=== PATIENT | female | born 1975 | race Hispanic/Latino ===

== ENCOUNTER 2017-05-06 22:08 | Emergency (ER) | payer MEDICAID ==
[2017-05-06 22:48] VITALS: BMI 27.4
[2017-05-06] MEDS ORDERED: Sodium Chloride 0.9% 1,000 ML IV STA (22:50)
--- NOTE | 2017-05-06 22:53 | ED PDOC ---
Arrival/HPI - General Chief Complaint: Abdominal Pain Time Seen by Provider: 05/06/17 22:32 Historian: Patient - History of Present Illness Narrative History of Present Illness (Text): 05/06/17 22:50 Holly Orozco is a 41 year old female, with a history of lupus, hepatitis C , IVDA, alcohol abuse, and LE cellulitis, presents to the emergency department complaining of abdominal pain since yesterday. Patient states that she had an abscess removed from right psoas muscle in August of 2016. States that pain is similar in quality to that episode. Patient informs that she gets nauseous immediately after eating a meal. Denies any fever, chills, headache, dizziness, chest pain, shortness of breathing, vomiting, diarrhea, urinary symptoms, or any other complaints at this time. Time/Duration: Other (yesterday ) Symptom Onset: Gradual Symptom Course: Unchanged Severity Level: Mild Activities at Onset: Light Past Medical History - Provider Review Nursing Documentation Reviewed: Yes - Infectious Disease Hx of Infectious Diseases: None - Tetanus Immunization Tetanus Immunization: Up to Date, Unknown - Cardiac Hx Cardiac Disorders: No Hx Hypertension: No - Pulmonary Hx Asthma: Yes - Neurological HX Cerebrovascular Accident: No Hx Seizures: No - HEENT Hx HEENT Disorder: No - Renal Hx Renal Disorder: No - Endocrine/Metabolic Hx Systemic Lupus Erythematosus: Yes Other/Comment: Methotrexate taken for Lupus - Hematological/Oncological Hx Cancer: No - Integumentary Other/Comment: Past cellulitis to the lower extremities - Musculoskeletal/Rheumatological Hx Arthritis: Yes - Gastrointestinal Hx Gastrointestinal Disorders: No - Genitourinary/Gynecological Hx Sexually Transmitted Diseases: No - Psychiatric Hx Anxiety: Yes Hx Depression: Yes Hx Substance Use: Yes - Past Surgical History Past Surgical History: No Previous - Surgical History Other/Comment: cyst drainage - Anesthesia Hx Anesthesia: Yes Hx Anesthesia Reactions: No Hx Malignant Hyperthermia: No - Suicidal Assessment Feels Threatened In Home Enviroment: No Family/Social History - Physician Review Nursing Documentation Reviewed: Yes Family/Social History: No Known Family HX Smoking Status: Light Smoker < 10 Cigarettes Daily Hx Alcohol Use: No Hx Substance Use: Yes Substance used: heroin and cocaine Hx Substance Use Treatment: No Allergies/Home Meds Allergies/Adverse Reactions: Allergies No Known Allergies Allergy (Verified 05/06/17 22:48) Review of Systems - Physician Review All systems were reviewed & negative as marked: Yes - Review of Systems Constitutional: Normal. absent: Fatigue, Fevers Respiratory: Normal. absent: SOB, Cough, Sputum Cardiovascular: Normal. absent: Chest Pain, Palpitations Gastrointestinal: Abdominal Pain, Nausea. absent: Diarrhea, Vomiting Genitourinary Female: Normal Musculoskeletal: Normal Neurological: Normal. absent: Headache, Dizziness Psychiatric: Normal Physical Exam Vital Signs Reviewed: Yes Vital Signs Temp Pulse Resp BP Pulse Ox 05/07/17 01:11 98.0 F 80 16 110/80 99 05/06/17 22:21 98.2 F 78 18 106/72 100 Temperature: Afebrile Blood Pressure: Normal Pulse: Regular Respiratory Rate: Normal Appearance: Positive for: Well-Appearing, Non-Toxic, Comfortable Pain Distress: None Mental Status: Positive for: Alert and Oriented X 3 - Systems Exam Head: Present: Atraumatic, Normocephalic Pupils: Present: PERRL Conjunctiva: Present: Normal Mouth: Present: Moist Mucous Membranes Respiratory/Chest: Present: Clear to Auscultation, Good Air Exchange. No: Respiratory Distress, Accessory Muscle Use Cardiovascular: Present: Regular Rate and Rhythm, Normal S1, S2. No: Murmurs Abdomen: Present: Normal Bowel Sounds. No: Tenderness, Distention, Peritoneal Signs Upper Extremity: Present: Normal Inspection. No: Cyanosis, Edema Lower Extremity: Present: Normal Inspection. No: Edema Neurological: Present: GCS=15, CN II-XII Intact, Speech Normal, Motor Func Grossly Intact, Normal Sensory Function Skin: Present: Warm, Dry, Normal Color. No: Rashes Psychiatric: Present: Alert, Oriented x 3, Normal Insight, Normal Concentration Medical Decision Making ED Course and Treatment: 05/06/17 22:57 Impression: A 41 year old female who presents to the emergency department complaining of abdominal pain associated with nausea since yesterday. Plan: -- Labs, lipase -- IV fluids -- Toradol -- HCG -- Urinalysis -- Reassess and disposition Progress Notes: 05/07/17 03:00 CT abdomen pelvis reviewed: FINDINGS: Lower thorax: Air in the esophagus in keeping with reflux. Small hiatus hernia. ABDOMEN: Liver: Liver prominent, 20.6 cm. Gallbladder and bile ducts: Common bile duct 10 mm, prominent, laboratory correlation. No calcified stones. Pancreas: Unremarkable. No ductal dilation. Spleen: Unremarkable. No splenomegaly. Adrenals: Unremarkable. No mass. Kidneys and ureters: Too small to characterize hypoattenuating finding in the right kidney series 2 image 61 may represent a cyst, subcentimeter. There is no hydronephrosis of either kidney. No ureteral stones are seen noting that punctate stones or noncalcified stones may not be well seen on CT. Stomach and bowel: No findings of bowel obstruction. No mucosal thickening. Appendix: The appendix is normal. PELVIS: Bladder: Unremarkable. No stones. Reproductive: 2.2 cm right adnexal cystic finding, please correlate with menstrual status. ABDOMEN and PELVIS: Intraperitoneal space: Unremarkable. No free air. No significant fluid collection. Bones/joints: Degenerative spine changes. No acute fracture. No dislocation. Soft tissues: Unremarkable. Vasculature: Unremarkable. No abdominal aortic aneurysm. Lymph nodes: Unremarkable. No enlarged lymph nodes. IMPRESSION: No ureteral stone seen, although difficult to absolutely exclude, laboratory correlation for hematuria or evidence of infection. Normal appendix. Hepatomegaly, prominent common bile duct, please correlate for biliary causes of symptoms. 2.2 cm right adnexal cyst which is favored to be functional, please correlate with menstrual status. As is true for all female patients of reproductive age, correlation with beta hCG and consideration of gynecologic causes of symptoms is recommended. The absence of intravenous contrast greatly limits evaluation of the parenchymal organs. 05/07/17 04:41 US Abdomen Limited, Right Upper Quadrant FINDINGS: Liver: Liver measures 18.2 cm. No intrahepatic bile duct dilation. Gallbladder: The gallbladder has no stones or sludge. Gallbladder wall thickness is within normal limits. As per the mri special procedures technologist there was no sonographic Vera's. Common bile duct: Common bile duct is 8 mm which is prominent for age. Clinical correlation. No choledocholithiasis. Pancreas: Limited visualization of the pancreas related to bowel gas. Right kidney: Right kidney measures 10.1 x 4.0 x 4.5 cm , no hydronephrosis solid mass or stone. IMPRESSION: 8mm common bile duct which is prominent for age, with no choledocholithiasis appreciated, laboratory correlation. No suspicious findings in the gallbladder. Negative right kidney. Pancreas could not be visualized. On reevaluation the patient feels better and is in no acute distress. I have discussed the results and plan with the patient, who expresses understanding. Patient given the opportunity to ask question, all questions were answered and there is agreement with the plan to discharge the patient home. Patient is stable for discharge. Patient was instructed to follow up with physician/clinic in 1-2 days or return if symptoms persist/worsen or new concerning symptoms arise. Re-evaluation Time: 04:08 Reassessment Condition: Re-examined, Improved - Lab Interpretations Lab Results: 05/06/17 23:17 05/06/17 23:17 Lab Results 05/06/17 23:17: Sodium 138, Potassium 4.5, Chloride 102, Carbon Dioxide 29, Anion Gap 12, BUN 14, Creatinine 0.7, Est GFR ( Amer) > 60, Est GFR (Non- Af Amer) > 60, Random Glucose 91, Calcium 9.3, Total Bilirubin 0.3, AST 20, ALT 28, Alkaline Phosphatase 70, Total Protein 7.6, Albumin 4.3, Globulin 3.4, Albumin/Globulin Ratio 1.3, Lipase 54 05/06/17 23:17: Urine Color Yellow, Urine Appearance Sl cloudy, Urine pH 7.5, Ur Specific [place] 1.015, Urine Protein Negative, Urine Glucose (UA) Negative, Urine Ketones Negative, Urine Blood Small H, Urine Nitrate Negative, Urine Bilirubin Negative, Urine Urobilinogen 1.0 H, Ur Leukocyte Esterase Negative, Urine RBC 1 - 3, Urine WBC 1 - 3, Ur Epithelial Cells 3 - 4, Urine Bacteria Small, Urine HCG, Qual Negative 05/06/17 23:17: PT 10.7, INR 0.99, APTT 29.2 05/06/17 23:17: WBC 8.1 D, RBC 4.55, Hgb 13.4, Hct 40.2, MCV 88.4, MCH 29.5, MCHC 33.3, RDW 13.6, Plt Count 234, MPV 9.9, Gran % 51.6, Lymph % (Auto) 38.1 H , [place] % (Auto) 4.4, Eos % (Auto) 5.7 H, Baso % (Auto) 0.2, Gran # 4.18, Lymph # 3.1, [place] # 0.4, Eos # 0.5, Baso # 0.02 I have reviewed the lab results: Yes - RAD Interpretation Radiology Orders: 05/07/17 00:24 ABD & PELVIS W/O PO OR IV CONT [CT] Stat 05/07/17 03:01 GALL BLADDER [US] Stat [employer] Internship: Radiologist - Medication Orders Current Medication Orders: Discontinued Medications Sodium Chloride (Sodium Chloride 0.9%) 1,000 mls @ 100 mls/hr IV .Q10H STA Stop: 05/07/17 08:49 Last Admin: 05/06/17 23:50 Dose: 100 mls/hr Ketorolac Tromethamine (Toradol) 30 mg IVP STAT STA Stop: 05/06/17 22:51 Last Admin: 05/06/17 23:50 Dose: 30 mg - Scribe Statement The provider has reviewed the documentation as recorded by the Alexibe Donna Vásquez Provider Attestation: Provider Scribe Attestation: All medical record entries made by the Scribe were at my direction and personally dictated by me. I have reviewed the chart and agree that the record accurately reflects my personal performance of the history, physical exam, medical decision making, and the department course for this patient. I have also personally directed, reviewed, and agree with the discharge instructions and disposition. Disposition/Present on Arrival - Present on Arrival Any Indicators Present on Arrival: No History of DVT/PE: No History of Uncontrolled Diabetes: No Urinary Catheter: No History of Decub. Ulcer: No History Surgical Site Infection Following: None - Disposition Have Diagnosis and Disposition been Completed?: Yes Diagnosis: Flank pain Disposition: HOME/ ROUTINE Disposition Time: 04:08 Condition: GOOD Discharge Instructions (ExitCare): Flank Pain (ED) Prescriptions: Sucralfate [Carafate Oral Susp] 1 gm PO QID #150 ml Referrals: Alyssa Wynn MD [Primary Care Provider] - Follow up with primary
[2017-05-07 00:55] LABS: ADD MANUAL DIFF? NO
[2017-05-07 01:00] LABS: BASO # 0.02 K/mm3 (0.0-2.0); BASO % 0.2 % (0.0-3.0); EOS # 0.5 (0.0-0.7); EOS % 5.7 % (1.5-5.0); GRAN # 4.18 (1.4-6.5); GRAN % 51.6 % (50.0-68.0); HEMATOCRIT 40.2 % (36.0-48.0); LYMPH # 3.1 (1.2-3.4); LYMPH % 38.1 % (22.0-35.0); MEAN CELL VOLUME 88.4 fL (80.0-105.0); MEAN CORPUSCULAR HEMOGLOBIN 29.5 pg (25.0-35.0); MEAN CORPUSCULAR HGB CONC 33.3 g/dl (31.0-37.0); MEAN PLATELET VOLUME 9.9 fl (7.0-11.0); MONO # 0.4 (0.1-0.6); MONO % 4.4 % (1.0-6.0); PLATELET COUNT 234 10^3/uL (120.0-450.0); RED CELL DISTRIBUTION WIDTH 13.6 % (11.5-14.5); WHITE BLOOD COUNT 8.1 10^3/ul (4.5-11.0)
[2017-05-07 01:04] LABS: PH,URINE 7.5 (4.7-8.0); URINE BILIRUBIN NEGATIVE (NEGATIVE); URINE BLOOD SMALL (NEGATIVE); URINE GLUCOSE (UA) NEGATIVE (NEGATIVE); URINE KETONE NEGATIVE (NEGATIVE); URINE LEUKOCYTE ESTERASE NEGATIVE Leu/uL (NEGATIVE); URINE PROTEIN NEGATIVE mg/dL (<30 mg/dL)
[2017-05-07 01:06] LABS: INR 0.99 (0.93-1.08); PARTIAL THROMBOPLASTIN TIME 29.2 Seconds (23.7-30.8)
[2017-05-07 01:11] LABS: URINE APPEARANCE SL CLOUDY (CLEAR); URINE COLOR YELLOW (YELLOW)
[2017-05-07 01:12] VITALS: BP 110/80; PULSE 80; RESP 16; TEMP 98; O2SAT 99
[2017-05-07 01:17] LABS: ALB/GLOB RATIO 1.3 (1.1-1.8); ALKALINE PHOSPHATASE 70 U/L (38-133); ALT/SGPT 28 U/L (7-56); AST/SGOT 20 U/L (15-39); BILIRUBIN,TOTAL 0.3 mg/dL (0.2-1.3); BLOOD UREA NITROGEN 14 mg/dL (7-21); CALCIUM 9.3 mg/dL (8.4-10.5); CARBON DIOXIDE 29 mmol/L (21-33); CHLORIDE 102 mmol/L (98-107); GFR AFRICAN-AMERICAN > 60; GLUCOSE,RANDOM 91 mg/dL (70-110); LIPASE 54 U/L (23-300); POTASSIUM 4.5 mmol/L (3.6-5.0); SODIUM 138 mmol/L (132-148); TOTAL PROTEIN 7.6 g/dL (5.8-8.3)
[2017-05-07 01:25] LABS: URINE BACTERIA SMALL (NEG)
--- NOTE | 2017-05-07 02:54 | CT ---
EXAM: CT Abdomen and Pelvis Without Intravenous Contrast CLINICAL HISTORY: 41 years old, female; Pain; Abdominal pain; Flank; Right; Additional info: Rt flank pain TECHNIQUE: Axial computed tomography images of the abdomen and pelvis without intravenous contrast. This CT exam was performed using one or more of the following dose reduction techniques: automated exposure control, adjustment of the mA and/or kV according to patient size, and/or use of iterative reconstruction technique. Coronal and sagittal reformatted images were created and reviewed. EXAM DATE/TIME: Exam ordered 05/07/2017 12:24 AM COMPARISON: CT - ABD PELVIS W/O PO OR IV CONT 01/13/2016 6:39:33 AM FINDINGS: Lower thorax: Air in the esophagus in keeping with reflux. Small hiatus hernia. ABDOMEN: Liver: Liver prominent, 20.6 cm. Gallbladder and bile ducts: Common bile duct 10 mm, prominent, laboratory correlation. No calcified stones. Pancreas: Unremarkable. No ductal dilation. Spleen: Unremarkable. No splenomegaly. Adrenals: Unremarkable. No mass. Kidneys and ureters: Too small to characterize hypoattenuating finding in the right kidney series 2 image 61 may represent a cyst, subcentimeter. There is no hydronephrosis of either kidney. No ureteral stones are seen noting that punctate stones or noncalcified stones may not be well seen on CT. Stomach and bowel: No findings of bowel obstruction. No mucosal thickening. Appendix: The appendix is normal. PELVIS: Bladder: Unremarkable. No stones. Reproductive: 2.2 cm right adnexal cystic finding, please correlate with menstrual status. ABDOMEN and PELVIS: Intraperitoneal space: Unremarkable. No free air. No significant fluid collection. Bones/joints: Degenerative spine changes. No acute fracture. No dislocation. Soft tissues: Unremarkable. Vasculature: Unremarkable. No abdominal aortic aneurysm. Lymph nodes: Unremarkable. No enlarged lymph nodes. IMPRESSION: No ureteral stone seen, although difficult to absolutely exclude, laboratory correlation for hematuria or evidence of infection. Normal appendix. Hepatomegaly, prominent common bile duct, please correlate for biliary causes of symptoms. 2.2 cm right adnexal cyst which is favored to be functional, please correlate with menstrual status. As is true for all female patients of reproductive age, correlation with beta hCG and consideration of gynecologic causes of symptoms is recommended. The absence of intravenous contrast greatly limits evaluation of the parenchymal organs.
--- NOTE | 2017-05-07 04:40 | US ---
EXAM: US Abdomen Limited, Right Upper Quadrant CLINICAL HISTORY: 41 years old, female; Pain; Abdominal pain; Generalized; Additional info: Ruq pain TECHNIQUE: Real-time ultrasound of the right upper quadrant with image documentation. EXAM DATE/TIME: Exam ordered 05/07/2017 3:01 AM COMPARISON: CT - ABD PELVIS W/O PO OR IV CONT 05/07/2017 1:53:24 AM FINDINGS: Liver: Liver measures 18.2 cm. No intrahepatic bile duct dilation. Gallbladder: The gallbladder has no stones or sludge. Gallbladder wall thickness is within normal limits. As per the electroencephalographic technologist there was no sonographic Vera's. Common bile duct: Common bile duct is 8 mm which is prominent for age. Clinical correlation. No choledocholithiasis. Pancreas: Limited visualization of the pancreas related to bowel gas. Right kidney: Right kidney measures 10.1 x 4.0 x 4.5 cm , no hydronephrosis solid mass or stone. IMPRESSION: 8mm common bile duct which is prominent for age, with no choledocholithiasis appreciated, laboratory correlation. No suspicious findings in the gallbladder. Negative right kidney. Pancreas could not be visualized.
== END 2017-05-07 04:17 | disposition home or self-care (01) ==
LOC: ED 22:08
DX: R10.9 Unspecified abdominal pain (principal); M32.9 Systemic lupus erythematosus, unspecified; B19.20 Unspecified viral hepatitis C without hepatic coma
CPT/HCPCS: 74176; 76705; 80053; 81001; 83690; 84703; 85025; 85610; 85730; 96374; 99283; J1885; J7040

== ENCOUNTER 2017-09-16 20:03 | Emergency (ER) | payer MEDICAID, OTHER ==
[2017-09-16 20:04] VITALS: BMI 27.4
[2017-09-16 20:14] VITALS: TEMP 98.2; O2SAT 100
--- NOTE | 2017-09-16 21:27 | ED PDOC ---
Arrival/HPI - General Chief Complaint: Allergic Reaction Time Seen by Provider: 09/16/17 20:14 Historian: Patient - History of Present Illness Narrative History of Present Illness (Text): 09/16/17 21:28 A 41 year old female, whose past medical history includes asthma and lupus, presents to the emergency department complaining of cough and congestion. Patient also reports left wrist and right foot pain after an injury at work. Patient also notes a toothache and mild perioral swelling. Patient denies any fever or any other complaints at this time. Symptom Onset: Sudden Symptom Course: Unchanged Activities at Onset: Rest Context: Home Past Medical History - Provider Review Nursing Documentation Reviewed: Yes - Infectious Disease Hx of Infectious Diseases: None - Tetanus Immunization Tetanus Immunization: Up to Date, Unknown - Reproductive Menopause: No - Cardiac Hx Cardiac Disorders: No Hx Hypertension: No - Pulmonary Hx Asthma: Yes - Neurological HX Cerebrovascular Accident: No Hx Seizures: No - HEENT Hx HEENT Disorder: No - Renal Hx Renal Disorder: No - Endocrine/Metabolic Hx Systemic Lupus Erythematosus: Yes Other/Comment: Methotrexate taken for Lupus - Hematological/Oncological Hx Cancer: No Hx Hepatitis C: Yes - Integumentary Other/Comment: Past cellulitis to the lower extremities - Musculoskeletal/Rheumatological Hx Arthritis: Yes - Gastrointestinal Hx Gastrointestinal Disorders: No - Genitourinary/Gynecological Hx Sexually Transmitted Diseases: No - Psychiatric Hx Anxiety: Yes Hx Depression: Yes Hx Substance Use: Yes - Past Surgical History Past Surgical History: No Previous - Surgical History Other/Comment: cyst drainage - Anesthesia Hx Anesthesia: Yes Hx Anesthesia Reactions: No Hx Malignant Hyperthermia: No - Suicidal Assessment Feels Threatened In Home Enviroment: No Family/Social History - Physician Review Nursing Documentation Reviewed: Yes Family/Social History: No Known Family HX Smoking Status: Light Smoker < 10 Cigarettes Daily Hx Alcohol Use: No Hx Substance Use: Yes Substance used: heroin and cocaine Hx Substance Use Treatment: No Allergies/Home Meds Allergies/Adverse Reactions: Allergies No Known Allergies Allergy (Verified 05/06/17 22:48) Review of Systems - Physician Review All systems were reviewed & negative as marked: Yes - Review of Systems Constitutional: absent: Fevers ENT: Sinus Congestion, Other (toothache and perioral swelling) Respiratory: Cough Musculoskeletal: Other (left wrist and right foot pain) Physical Exam Vital Signs Reviewed: Yes Vital Signs Temp Pulse Resp BP Pulse Ox 09/16/17 23:38 80 16 120/72 100 09/16/17 22:04 80 16 130/75 100 09/16/17 20:08 98.2 F 76 20 126/75 100 Temperature: Afebrile Blood Pressure: Normal Pulse: Regular Respiratory Rate: Normal Appearance: Positive for: Well-Appearing, Non-Toxic, Comfortable Pain Distress: None Mental Status: Positive for: Alert and Oriented X 3 - Systems Exam Head: Present: Atraumatic, Normocephalic Pupils: Present: PERRL Extroacular Muscles: Present: EOMI Conjunctiva: Present: Normal Mouth: Present: Moist Mucous Membranes Neck: Present: Normal Range of Motion Respiratory/Chest: Present: Rhonchi (scattered), Other (diminished breath sounds ). No: Accessory Muscle Use Cardiovascular: Present: Regular Rate and Rhythm, Normal S1, S2. No: Murmurs Abdomen: Present: Normal Bowel Sounds. No: Tenderness, Distention, Peritoneal Signs Back: Present: Normal Inspection Upper Extremity: Present: Tenderness (left wrist mild tenderness). No: Cyanosis , Edema Lower Extremity: Present: Tenderness (right foot mild tenderness). No: Edema Neurological: Present: GCS=15, CN II-XII Intact, Speech Normal Skin: Present: Warm, Dry, Normal Color. No: Rashes Psychiatric: Present: Alert, Oriented x 3, Normal Insight, Normal Concentration Medical Decision Making ED Course and Treatment: 09/16/17 21:25 Impression: A 41 year old female with cough, congestion and left wrist and right foot pain. Plan: -- chest xray -- labs -- Urinalysis -- Duoneb, Solumedrol -- Reassess and disposition Prior Visits: Notes and results from previous visits were reviewed. Patient last reported to the emergency department on 05/06/17 for evaluation of abdominal pain. Progress Notes: 09/16/17 22:00 No active disease, interpreted by me. 09/16/17 22:50 On reassessment, patient is eating potato chips. Lungs are clear. Offered patient further observation, which she declined. Patient is requesting to be discharged home. - Lab Interpretations Lab Results: 09/16/17 21:30 09/16/17 21:30 Lab Results 09/16/17 21:30: Influenza Typ A,B (EIA) Negative for flu a/b 09/16/17 21:30: Urine Color Yellow, Urine Appearance Sl cloudy, Urine pH 6.0, Ur Specific [place] >= 1.030, Urine Protein 30 H, Urine Glucose (UA) Negative, Urine Ketones Trace H, Urine Blood Moderate H, Urine Nitrate Negative, Urine Bilirubin Negative, Urine Urobilinogen 1.0 H, Ur Leukocyte Esterase Negative, Urine RBC 10 - 15, Urine WBC 1 - 3, Ur Epithelial Cells 6 - 8, Urine Bacteria Mod, Urine HCG, Qual Negative 09/16/17 21:30: Sodium 140, Potassium 3.9, Chloride 105, Carbon Dioxide 24, Anion Gap 15, BUN 16, Creatinine 0.6 L, Est GFR ( Amer) > 60, Est GFR ( Non-Af Amer) > 60, Random Glucose 96, Calcium 8.9, Total Bilirubin 0.6, AST 26, ALT 25, Alkaline Phosphatase 72, Total Protein 7.3, Albumin 4.3, Globulin 2.9, Albumin/Globulin Ratio 1.5 09/16/17 21:30: PT 11.0, INR 1.02, APTT 31.2 H 09/16/17 21:30: WBC 9.0, RBC 4.28, Hgb 12.5, Hct 37.2, MCV 86.9, MCH 29.2, MCHC 33.6, RDW 13.7, Plt Count 216, MPV 9.7, Gran % 73.7 H, Lymph % (Auto) 15.7 L, [place] % (Auto) 4.4, Eos % (Auto) 6.0 H, Baso % (Auto) 0.2, Gran # 6.63 H, Lymph # 1.4, [place] # 0.4, Eos # 0.5, Baso # 0.02 I have reviewed the lab results: Yes - RAD Interpretation Radiology Orders: 09/16/17 20:26 CHEST ONE VIEW [RAD] Stat 09/16/17 20:27 FOOT RIGHT 3 VIEWS ROUTINE [RAD] Stat WRIST, LEFT 3 VIEWS [RAD] Stat - Medication Orders Current Medication Orders: Discontinued Medications Albuterol/Ipratropium (Duoneb 3 Mg/0.5 Mg (3 Ml) Ud) 3 ml IH Q15M BINTA Stop: 09/16/17 21:01 Last Admin: 09/16/17 22:15 Dose: 3 ml Methylprednisolone (Solu-Medrol) 125 mg IVP STAT STA Stop: 09/16/17 20:27 Last Admin: 09/16/17 21:39 Dose: 125 mg IVP Administration Document 09/16/17 21:39 HI (Rec: 09/16/17 21:39 [place] [facility] [id number]) Charges for Administration # of IVP Administrations 1 - Scribe Statement The provider has reviewed the documentation as recorded by the Scribe Sruthi Rose All medical record entries made by the Scribe were at my direction and personally dictated by me. I have reviewed the chart and agree that the record accurately reflects my personal performance of the history, physical exam, medical decision making, and the department course for this patient. I have also personally directed, reviewed, and agree with the discharge instructions and disposition. Disposition/Present on Arrival - Present on Arrival Any Indicators Present on Arrival: No History of DVT/PE: No History of Uncontrolled Diabetes: No Urinary Catheter: No History of Decub. Ulcer: No History Surgical Site Infection Following: None - Disposition Have Diagnosis and Disposition been Completed?: Yes Diagnosis: Asthma, Toothache, Wrist injury, Foot injury Disposition: HOME/ ROUTINE Disposition Time: 11:30 Condition: STABLE Discharge Instructions (ExitCare): Asthma (ED), Foot Sprain (ED), Toothache (ED ), Wrist Sprain (ED) Additional Instructions: please see your doctor/clinic. return to er with worsening symptoms or concerns. Prescriptions: Albuterol 0.083% [Albuterol 0.083% Inhal Nohemi (2.5 mg/3 ml) UD] 2.5 mg IH Q6 PRN #20 neb PRN Reason: Wheezing Amoxicillin 500 mg PO TID #21 tablet Benzonatate [Tessalon Perles] 100 mg PO TID PRN #15 sgl PRN Reason: Cough Prednisone 50 mg PO DAILY #4 tablet Referrals: PCP,NO [Primary Care Provider] - Follow up with primary Forms: [employer] (Greek)
[2017-09-16] MEDS: Albuterol-Ipratrop 3 mg / 0.5 (3 ml) UD IH SCH ×3 (21:39→22:15)
[2017-09-16 21:45] LABS: BASO # 0.02 K/mm3 (0.0-2.0); BASO % 0.2 % (0.0-3.0); EOS # 0.5 (0.0-0.7); GRAN # 6.63 (1.4-6.5); GRAN % 73.7 % (50.0-68.0); HEMATOCRIT 37.2 % (36.0-48.0); LYMPH # 1.4 (1.2-3.4); LYMPH % 15.7 % (22.0-35.0); MEAN CELL VOLUME 86.9 fl (80.0-105.0); MEAN CORPUSCULAR HEMOGLOBIN 29.2 pg (25.0-35.0); MEAN CORPUSCULAR HGB CONC 33.6 g/dl (31.0-37.0); MEAN PLATELET VOLUME 9.7 fl (7.0-11.0); MONO # 0.4 (0.1-0.6); MONO % 4.4 % (1.0-6.0); RED CELL DISTRIBUTION WIDTH 13.7 % (11.5-14.5)
[2017-09-16 21:51] LABS: URINE BILIRUBIN NEGATIVE (NEGATIVE); URINE BLOOD MODERATE (NEGATIVE); URINE GLUCOSE (UA) NEGATIVE (NEGATIVE); URINE KETONE TRACE mg/dL (NEGATIVE); URINE LEUKOCYTE ESTERASE NEGATIVE Leu/uL (NEGATIVE); URINE PROTEIN 30 mg/dL (<30 mg/dL)
[2017-09-16 21:55] LABS: INR 1.02 (0.93-1.08); PARTIAL THROMBOPLASTIN TIME 31.2 Seconds (23.7-30.8)
[2017-09-16 21:57] LABS: ALB/GLOB RATIO 1.5 (1.1-1.8); ALKALINE PHOSPHATASE 72 U/L (38-126); ALT/SGPT 25 U/L (7-56); AST/SGOT 26 U/L (14-36); BILIRUBIN,TOTAL 0.6 mg/dL (0.2-1.3); BLOOD UREA NITROGEN 16 mg/dL (7-21); CALCIUM 8.9 mg/dL (8.4-10.5); CARBON DIOXIDE 24 mmol/L (21-33); CHLORIDE 105 mmol/L (98-107); GFR AFRICAN-AMERICAN > 60; GLUCOSE,RANDOM 96 mg/dL (70-110); POTASSIUM 3.9 mmol/L (3.6-5.0); SODIUM 140 mmol/L (132-148); TOTAL PROTEIN 7.3 g/dL (5.8-8.3)
[2017-09-16 22:05] LABS: URINE COLOR YELLOW (YELLOW)
[2017-09-16 22:06] LABS: URINE APPEARANCE SL CLOUDY (CLEAR)
[2017-09-16 22:26] LABS: URINE BACTERIA MOD (NEG)
[2017-09-16 23:38] VITALS: PULSE 80; RESP 16
[2017-09-16 23:40] VITALS: BP 120/72
--- NOTE | 2017-09-17 08:38 | RAD ---
PROCEDURE: CHEST RADIOGRAPH, 1 VIEW HISTORY: cough COMPARISON: 08/16/2016 FINDINGS: LUNGS: Clear. PLEURA: No pneumothorax or pleural fluid seen. CARDIOVASCULAR: Normal. OSSEOUS STRUCTURES: No significant abnormalities. VISUALIZED UPPER ABDOMEN: Normal. OTHER FINDINGS: None. IMPRESSION: No active disease.
--- NOTE | 2017-09-17 10:01 | RAD ---
PROCEDURE: Left Wrist Radiographs. HISTORY: trauma COMPARISON: None. FINDINGS: BONES: Subcortical cysts are tiny erosion are present: 3rd DIP joint. Lesser cystic subcortical changes - 5th metacarpal phalangeal, proximal interphalangeal, 2nd metacarpal phalangeal levels and 1st interphalangeal joint are noted. Radiocarpal joint space narrowing, carpal-metacarpal joint space narrowing. Distal interphalangeal joint osseous hypertrophy with mostly distal interphalangeal joint space narrowing-most pronounced 3rd DIP joint. No fracture. JOINTS: Osteoarthrosis as above. No dislocation SOFT TISSUES: Normal. OTHER FINDINGS: None. IMPRESSION: Multifocal arthrosis - carpal bone and distal interphalangeal joints most notably. No fracture or dislocation
--- NOTE | 2017-09-17 10:05 | RAD ---
PROCEDURE: Right Foot Radiographs. HISTORY: Trauma COMPARISON: None FINDINGS: BONES: No fracture JOINTS: Normal. SOFT TISSUES: Marked lateral soft tissue swelling- 5th metacarpal metacarpal phalangeal joint level. Lesser soft tissue swelling/hyperdensity -1st metacarpal phalangeal joint OTHER FINDINGS: Incidental os peroneum IMPRESSION: No fracture or dislocation. Marked soft tissue swellings
== END 2017-09-16 23:38 | disposition home or self-care (01) ==
LOC: ED 20:03
DX: K08.89 Other specified disorders of teeth and supporting structures (principal); J45.909 Unspecified asthma, uncomplicated; S69.92XA Unspecified injury of left wrist, hand and finger(s), initial encounter; S99.921A Unspecified injury of right foot, initial encounter; X58.XXXA Exposure to other specified factors, initial encounter; Y99.0 Civilian activity done for income or pay
CPT/HCPCS: 71010; 73110; 73630; 80053; 81001; 84703; 85025; 85610; 85730; 87804; 96374; 99284; J2930

== ENCOUNTER 2017-09-16 20:10 | Emergency (ER) | payer MEDICAID, OTHER ==
[2017-09-16 20:10] VITALS: BMI 27.4
== END 2017-09-16 23:07 | disposition left against medical advice (07) ==
LOC: ED 20:10
DX: Z02.89 Encounter for other administrative examinations (principal); R06.02 Shortness of breath

== ENCOUNTER 2017-09-16 20:14 | Emergency (ER) | payer MEDICAID, OTHER ==
[2017-09-16 20:14] VITALS: BMI 27.4
== END 2017-09-16 23:07 | disposition left against medical advice (07) ==
LOC: ED 20:14
DX: Z02.89 Encounter for other administrative examinations (principal); R06.02 Shortness of breath

== ENCOUNTER 2018-08-12 23:48 | Emergency (ER) | payer SELFPAY ==
[2018-08-12 23:49] VITALS: BMI 19.7
[2018-08-13 00:07] VITALS: BP 125/79; PULSE 107; RESP 18; TEMP 98.8; O2SAT 100
[2018-08-13] MEDS ORDERED: Vancomycin 1gm in NS 250ml 1 GM/250 ML BAG IVPB STA (00:08)
[2018-08-13] MEDS ORDERED: Piperacillin/Tazobact 3.375 gm 100 ML IVPB STA (00:08)
--- NOTE | 2018-08-13 00:08 | ED PDOC ---
Arrival/HPI - General Historian: Patient - History of Present Illness Time/Duration: < week Symptom Onset: Gradual Symptom Course: Unchanged Activities at Onset: Light Context: Home - General Chief Complaint: Upper Extremity Problem/Injury Time Seen by Provider: 08/12/18 23:53 - History of Present Illness Narrative History of Present Illness (Text): 08/13/18 00:07 Holly Thornton is a 42 year old female, whose past medical history includes IVDA and cellulitis, who presents to the emergency department with swelling, redness, and pain in the right hand. Patient was recently admitted to the hospital on 08/06/2018 for similar complaint and admitted to the hospital for IV antibiotics. Patient was discharged home on 08/06/2018 with prescriptions for Zyvox and Augmentin, which she did not fill due to insurance issues. Patient states since then, the swelling and redness in her right hand returned, and she developed purulent discharge today. Patient also complaining of pain to the area. Patient denies any injecting drugs in to the arm or hand recently. Patient denies any fever, chest pain, shortness of breath, abdominal pain, nausea, vomiting, diarrhea, or any other complaints. (Hari Tucker) Past Medical History - Provider Review Nursing Documentation Reviewed: Yes - Infectious Disease Hx of Infectious Diseases: None - Tetanus Immunization Tetanus Immunization: Up to Date, Unknown - Cardiac Hx Cardiac Disorders: No Hx Hypertension: No - Pulmonary Hx Asthma: Yes Hx Bronchitis: Yes Hx Pneumonia: Yes - Neurological Hx Migraine: Yes - HEENT Hx HEENT Disorder: No - Renal Hx Kidney Stones: Yes - Endocrine/Metabolic Hx Systemic Lupus Erythematosus: Yes Other/Comment: Methotrexate taken for Lupus - Hematological/Oncological Hx Anemia: Yes - Integumentary Other/Comment: Past cellulitis to the lower extremities - Musculoskeletal/Rheumatological Hx Arthritis: Yes Hx Fractures: Yes (Right pinky, left ankle) Hx Rheumatoid Arthritis: Yes - Gastrointestinal Hx Gastrointestinal Disorders: No - Genitourinary/Gynecological Hx Sexually Transmitted Diseases: No - Psychiatric Hx Anxiety: Yes Hx Bipolar Disorder: Yes Hx Depression: Yes Hx Substance Use: Yes (heroin/cocaine) - Past Surgical History Past Surgical History: No Previous - Surgical History Other/Comment: cyst drainage - Anesthesia Hx Anesthesia: Yes Hx Anesthesia Reactions: No Hx Malignant Hyperthermia: No - Suicidal Assessment Feels Threatened In Home Enviroment: No Family/Social History - Physician Review Nursing Documentation Reviewed: Yes Family/Social History: Unknown Family HX Smoking Status: Heavy Smoker > 10 Cigarettes Daily Hx Alcohol Use: Yes Hx Substance Use: Yes (heroin/cocaine) Substance used: heroin and cocaine Hx Substance Use Treatment: No Allergies/Home Meds Allergies/Adverse Reactions: Allergies No Known Allergies Allergy (Verified 08/13/18 00:02) Review of Systems - Physician Review All systems were reviewed & negative as marked: Yes - Review of Systems Constitutional: Normal. absent: Fevers Eyes: Normal ENT: Normal Respiratory: Normal. absent: SOB, Cough Cardiovascular: Normal. absent: Chest Pain Gastrointestinal: Normal. absent: Abdominal Pain, Diarrhea, Nausea, Vomiting Genitourinary Female: Normal. absent: Dysuria, Frequency, Hematuria, Urine Output Changes Musculoskeletal: Normal. absent: Back Pain, Neck Pain Skin: Other (+swelling/redness/pain to right hand) Neurological: Normal. absent: Dizziness Endocrine: Normal Hemo/Lymphatic: Normal Psychiatric: Normal Physical Exam Vital Signs Reviewed: Yes Temperature: Afebrile Blood Pressure: Normal Pulse: Regular Respiratory Rate: Normal Appearance: Positive for: Well-Appearing, Non-Toxic, Comfortable Pain Distress: None Mental Status: Positive for: Alert and Oriented X 3 - Systems Exam Head: Present: Atraumatic, Normocephalic Pupils: Present: PERRL Extroacular Muscles: Present: EOMI Conjunctiva: Present: Normal Mouth: Present: Moist Mucous Membranes Neck: Present: Normal Range of Motion Respiratory/Chest: Present: Clear to Auscultation, Good Air Exchange. No: Respiratory Distress, Accessory Muscle Use Cardiovascular: Present: Regular Rate and Rhythm, Normal S1, S2. No: Murmurs Abdomen: No: Tenderness, Distention, Peritoneal Signs Upper Extremity: Present: Edema (Right hand edema along the dorsal aspect of hand with limited ROM of fingers), NORMAL PULSES, Erythema (Quarter-sized area of erythema to dorsal aspect of right hand with purulent discharge coming out centrally), Neurovascularly Intact, Capillary Refill < 2s. No: Cyanosis, Normal ROM, Temperature Abnormalties, Deformity Lower Extremity: Present: Normal Inspection. No: Edema Neurological: Present: GCS=15, CN II-XII Intact, Speech Normal Skin: Present: Warm, Dry, Normal Color. No: Rashes Psychiatric: Present: Alert, Oriented x 3, Normal Insight, Normal Concentration Vital Signs Temp Pulse Resp BP Pulse Ox 08/13/18 00:02 98.8 F 107 H 18 125/79 100 Medical Decision Making ED Course and Treatment: 08/13/18 00:07 Impression: 42 year old female complaining of redness, swelling, and pain to right hand with purulent discharge today. Plan: -- Labs, blood cultures -- Wound cultures -- XR Right Hand -- Reassess and disposition Prior Visits: Notes and results from previous visits were reviewed. On 08/06/2018, pt was seen in the Emergency department for redness, swelling, and pain to right hand. Pt was admitted to the hospital for IV antibiotics and further evaluation. 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 The patient is choosing to leave against medical advice. I have personally explained to the patient that choosing to do so may result in permanent bodily harm or . I have discussed at great length that without further evaluation and monitoring there may be unforeseen circumstances and/or deterioration causing permanent bodily harm, loss of limb, or as a result of their choice. The patient is alert, oriented, and shows the mental capacity to make clear decisions regarding the patients health care at this time. The patient continues to wish to leave against medical advice. In light of the patients decision to leave against medical advice, s aware of the importance to following up as instructed. The patient has been advised that they should return to the emergency room immediately if they change their mind at any time, or if their condition begins to change or worsen in any way. (Hari Tucker) - RAD Interpretation Radiology Orders: 08/13/18 00:08 HAND RIGHT 3 VIEWS [RAD] Stat - Medication Orders Current Medication Orders: Vancomycin HCl (Vancomycin 1gm) 1 gm in 250 mls @ 167 mls/hr IVPB STAT STA PRN Reason: Protocol Stop: 08/13/18 01:37 Piperacillin Sod/Tazobactam Sod (Zosyn 3.375 In Ns 100ml) 100 mls @ 200 mls/hr IVPB STAT STA PRN Reason: Protocol Stop: 08/13/18 00:37 Sodium Chloride (Sodium Chloride 0.9%) 1,000 mls @ 999 mls/hr IV .Q1H1M STA Stop: 08/13/18 01:09 Discontinued Medications Ketorolac Tromethamine (Toradol) 30 mg IVP STAT STA Stop: 08/13/18 00:10 - Scribe Statement The provider has reviewed the documentation as recorded by the Scribe - Scribe Statement Ksenia Bautista Provider Scribe Attestation: All medical record entries made by the Scribe were at my direction and personally dictated by me. I have reviewed the chart and agree that the record accurately reflects my personal performance of the history, physical exam, medical decision making, and the department course for this patient. I have also personally directed, reviewed, and agree with the discharge instructions and disposition. (Hari Tucker) Disposition/Present on Arrival - Present on Arrival History of DVT/PE: No History of Uncontrolled Diabetes: No Urinary Catheter: No History of Decub. Ulcer: No History Surgical Site Infection Following: None - Disposition Diagnosis: Cellulitis of hand, Abscess, hand Disposition: AGAINST MEDICAL ADVICE Condition: UNKNOWN Discharge Instructions (ExitCare): Cellulitis (ED) Additional Instructions: return if you wish to continue your care Prescriptions: Cephalexin [Keflex] 500 mg PO QID #28 capsule Sulfamethoxazole/Trimethoprim [Bactrim DS 800 mg-160 mg] 1 tab PO BID #14 tab Referrals: David Patel MD [Staff Provider] - Follow up with primary Lili Ribera MD [Medical Doctor] - Follow up with primary [facility] [place] [Outside] - Follow up with primary [facility] [Outside] - Follow up with primary Forms: [employer] ([place])
[2018-08-13] MEDS ORDERED: Sodium Chloride 0.9% 1,000 ML IV STA (00:09)
--- NOTE | 2018-08-13 00:31 | ED PDOC ---
Arrival/HPI - General Chief Complaint: Upper Extremity Problem/Injury Time Seen by Provider: 08/12/18 23:53 Historian: Patient - History of Present Illness Narrative History of Present Illness (Text): 08/13/18 00:20 Holly Thornton is a 42 year old female, whose past medical history includes IVDA and cellulitis, who presents to the emergency department with swelling, redness, and pain in the right hand. Patient was recently admitted to the hospital on 08/06/2018 for similar complaint and admitted to the hospital for IV antibiotics. Patient was discharged home on 08/06/2018 with prescriptions for Zyvox and Augmentin, which she did not fill due to insurance issues. Patient states since then, the swelling and redness in her right hand returned, and she developed purulent discharge today. Patient also complaining of pain to the area. Patient denies any injecting drugs in to the arm or hand recently. Patient denies any fever, chest pain, shortness of breath, abdominal pain, nausea, vomiting, diarrhea, or any other complaints. Symptom Onset: Gradual Symptom Course: Unchanged Severity Level: Mild Activities at Onset: Light Context: Home Past Medical History - Provider Review Nursing Documentation Reviewed: Yes - Travel History Have you recently traveled outside [place] w/in the past 3 mons?: No - Infectious Disease Hx of Infectious Diseases: None - Tetanus Immunization Tetanus Immunization: Up to Date, Unknown - Cardiac Hx Cardiac Disorders: No Hx Hypertension: No - Pulmonary Hx Asthma: Yes Hx Bronchitis: Yes Hx Pneumonia: Yes - Neurological Hx Migraine: Yes - HEENT Hx HEENT Disorder: No - Renal Hx Kidney Stones: Yes - Endocrine/Metabolic Hx Systemic Lupus Erythematosus: Yes Other/Comment: Methotrexate taken for Lupus - Hematological/Oncological Hx Anemia: Yes - Integumentary Other/Comment: Past cellulitis to the lower extremities - Musculoskeletal/Rheumatological Hx Arthritis: Yes Hx Fractures: Yes (Right pinky, left ankle) Hx Rheumatoid Arthritis: Yes - Gastrointestinal Hx Gastrointestinal Disorders: No - Genitourinary/Gynecological Hx Sexually Transmitted Diseases: No - Psychiatric Hx Anxiety: Yes Hx Bipolar Disorder: Yes Hx Depression: Yes Hx Substance Use: Yes (heroin/cocaine) - Past Surgical History Past Surgical History: No Previous - Surgical History Other/Comment: cyst drainage - Anesthesia Hx Anesthesia: Yes Hx Anesthesia Reactions: No Hx Malignant Hyperthermia: No - Suicidal Assessment Feels Threatened In Home Enviroment: No Family/Social History - Physician Review Nursing Documentation Reviewed: Yes Family/Social History: Unknown Family HX Smoking Status: Heavy Smoker > 10 Cigarettes Daily Hx Alcohol Use: Yes Hx Substance Use: Yes (heroin/cocaine) Substance used: heroin and cocaine Hx Substance Use Treatment: No Allergies/Home Meds Allergies/Adverse Reactions: Allergies No Known Allergies Allergy (Verified 08/13/18 00:02) Review of Systems - Physician Review All systems were reviewed & negative as marked: Yes - Review of Systems Constitutional: Normal. absent: Fatigue, Fevers Respiratory: Normal. absent: SOB, Cough Cardiovascular: Normal. absent: Chest Pain Gastrointestinal: Normal. absent: Abdominal Pain, Diarrhea, Vomiting Musculoskeletal: Arthralgias (right hand pain/swelling). absent: Back Pain, Neck Pain Skin: Abscess, Cellulitis (+swelling/redness/pain to right hand) Neurological: Normal. absent: Headache, Dizziness Psychiatric: absent: Anxiety, Depression Physical Exam Vital Signs Reviewed: Yes Vital Signs Temp Pulse Resp BP Pulse Ox 08/13/18 00:02 98.8 F 107 H 18 125/79 100 Temperature: Afebrile Blood Pressure: Normal Pulse: Tachycardic Respiratory Rate: Normal Appearance: Positive for: Well-Appearing, Non-Toxic, Comfortable Pain Distress: None Mental Status: Positive for: Alert and Oriented X 3 - Systems Exam Head: Present: Atraumatic Conjunctiva: Present: Normal Mouth: Present: Moist Mucous Membranes Neck: Present: Normal Range of Motion Respiratory/Chest: Present: Clear to Auscultation, Good Air Exchange. No: Respiratory Distress, Accessory Muscle Use Cardiovascular: Present: Regular Rate and Rhythm, Normal S1, S2. No: Murmurs Upper Extremity: Present: Edema (Right hand edema along the dorsal aspect of hand with limited ROM of fingers), NORMAL PULSES, Erythema (QuaQuarter-sized area of erythema to dorsal aspect of right hand with purulent discharge coming out centrally), Neurovascularly Intact, Capillary Refill < 2s. No: Cyanosis, Normal ROM, Deformity Neurological: Present: GCS=15, Speech Normal Skin: Present: Warm, Dry, Normal Color Psychiatric: Present: Alert, Oriented x 3 Medical Decision Making ED Course and Treatment: 08/13/18 00:20 Impression: 42 year old female complaining of redness, swelling, and pain to right hand with purulent discharge today. Plan: -- Labs, blood cultures -- Wound cultures -- XR Right Hand -- Reassess and disposition Prior Visits: Notes and results from previous visits were reviewed. On 08/06/2018, pt was seen in the Emergency department for redness, swelling, and pain to right hand. Pt was admitted to the hospital for IV antibiotics and further evaluation. Progress Notes: 08/13/18 00:17 pt has refused any testing in er. she does not want to stay in the hospital without her belongings. 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 pt was made aware of the risk of loss of limb, bone infection, skin infection, sepsis, , disability and worsening of any symptoms. The patient is choosing to leave against medical advice. I have personally explained to the patient that choosing to do so may result in permanent bodily harm or . I have discussed at great length that without further evaluation and monitoring there may be unforeseen circumstances and/or deterioration causing permanent bodily harm, loss of limb, or as a result of their choice. The patient is alert, oriented, and shows the mental capacity to make clear decisions regarding the patients health care at this time. The patient continues to wish to leave against medical advice. In light of the patients decision to leave against medical advice, patient is aware of the importance to following up as instructed. The patient has been advised that they should return to the emergency room immediately if they change their mind at any time, or if their condition begins to change or worsen in any way. Patient has been advised to not leave the emergency room but has decided to go AGAINST MEDICAL ADVICE. The patient possesses capacity to make decisions and has voiced understanding to all my warnings of potential worsening of the condition for which medical care was sought. I have discussed all known and potential risks and consequences to the patient leaving AGAINST MEDICAL ADVICE. Patient is leaving against medical advise. AMA form signed. witness by JUHI west; cellulitis, abscess, hand AMA return if you wish to continue your care. . - RAD Interpretation Radiology Orders: 08/13/18 00:08 HAND RIGHT 3 VIEWS [RAD] Stat - Medication Orders Current Medication Orders: Vancomycin HCl (Vancomycin 1gm) 1 gm in 250 mls @ 167 mls/hr IVPB STAT STA PRN Reason: Protocol Stop: 09/13/18 01:37 Piperacillin Sod/Tazobactam Sod (Zosyn 3.375 In Ns 100ml) 100 mls @ 200 mls/hr IVPB STAT STA PRN Reason: Protocol Stop: 08/13/18 00:37 Sodium Chloride (Sodium Chloride 0.9%) 1,000 mls @ 999 mls/hr IV .Q1H1M STA Stop: 08/13/18 01:09 Discontinued Medications Ketorolac Tromethamine (Toradol) 30 mg IVP STAT STA Stop: 08/13/18 00:10 - Scribe Statement The provider has reviewed the documentation as recorded by the Alexibveronica Bautista Provider Scribe Attestation: All medical record entries made by the Scribe were at my direction and personally dictated by me. I have reviewed the chart and agree that the record accurately reflects my personal performance of the history, physical exam, medical decision making, and the department course for this patient. I have also personally directed, reviewed, and agree with the discharge instructions and disposition. Disposition/Present on Arrival - Present on Arrival Any Indicators Present on Arrival: No History of DVT/PE: No History of Uncontrolled Diabetes: No Urinary Catheter: No History of Decub. Ulcer: No History Surgical Site Infection Following: None - Disposition Have Diagnosis and Disposition been Completed?: Yes Diagnosis: Cellulitis of hand, Abscess, hand Disposition: AGAINST MEDICAL ADVICE Disposition Time: 12:20 Patient Plan: Other (AMA) Patient Problems: Current Active Problems Problem Status Onset Abscess, hand Acute Cellulitis of hand Acute Condition: UNKNOWN Discharge Instructions (ExitCare): Cellulitis (ED) Additional Instructions: return if you wish to continue your care Prescriptions: Cephalexin [Keflex] 500 mg PO QID #28 capsule Sulfamethoxazole/Trimethoprim [Bactrim DS 800 mg-160 mg] 1 tab PO BID #14 tab Referrals: [facility] [Outside] - Follow up with primary [facility] [place] [Outside] - Follow up with primary David Patel MD [Staff Provider] - Follow up with primary Lili Ribera MD [Medical Doctor] - Follow up with primary Forms: [employer] ([employer])
== END 2018-08-13 00:28 | disposition left against medical advice (07) ==
LOC: ED 23:48
DX: L03.113 Cellulitis of right upper limb (principal); L02.511 Cutaneous abscess of right hand; M06.9 Rheumatoid arthritis, unspecified; M32.9 Systemic lupus erythematosus, unspecified; F17.210 Nicotine dependence, cigarettes, uncomplicated

== ENCOUNTER 2018-08-13 01:14 | Inpatient (IN) | payer MEDICAID, OTHER ==
[2018-08-13 01:14] VITALS: BMI 19.7
--- NOTE | 2018-08-13 02:10 | ED PDOC ---
Arrival/HPI - General Chief Complaint: Upper Extremity Problem/Injury Time Seen by Provider: 08/13/18 02:01 Historian: Patient - History of Present Illness Narrative History of Present Illness (Text): 08/13/18 02:09 Holly Thornton is a 42 year old female, whose past medical history includes IVDA and cellulitis, who presents to the emergency department with swelling, redness, and pain in the right hand. Patient was recently admitted to the hospital on 08/06/2018 for similar complaint and admitted to the hospital for IV antibiotics. Patient was discharged home on 08/06/2018 with prescriptions for Zyvox and Augmentin, which she did not fill due to insurance issues. Patient states the swelling and redness in her right hand returned following discharge from the hospital, and she developed purulent discharge. Patient also complaining of pain to the area. Patient denies any injecting drugs in to the arm or hand recently. Patient denies any fever, chest pain, shortness of breath, abdominal pain, nausea, vomiting, diarrhea, or any other complaints. Patient was seen earlier tonight for similar complaints but left against medical advice because she had to go cloth picker some things from home. Symptom Onset: Gradual Symptom Course: Unchanged Activities at Onset: Light Context: Home Past Medical History - Infectious Disease Hx of Infectious Diseases: None - Tetanus Immunization Tetanus Immunization: Up to Date, Unknown - Cardiac Hx Cardiac Disorders: No Hx Hypertension: No - Pulmonary Hx Asthma: Yes Hx Bronchitis: Yes Hx Pneumonia: Yes - Neurological Hx Migraine: Yes - HEENT Hx HEENT Disorder: No - Renal Hx Kidney Stones: Yes - Endocrine/Metabolic Hx Systemic Lupus Erythematosus: Yes Other/Comment: Methotrexate taken for Lupus - Hematological/Oncological Hx Anemia: Yes - Integumentary Other/Comment: Past cellulitis to the lower extremities - Musculoskeletal/Rheumatological Hx Arthritis: Yes Hx Fractures: Yes (Right pinky, left ankle) Hx Rheumatoid Arthritis: Yes - Gastrointestinal Hx Gastrointestinal Disorders: No - Genitourinary/Gynecological Hx Sexually Transmitted Diseases: No - Psychiatric Hx Anxiety: Yes Hx Bipolar Disorder: Yes Hx Depression: Yes Hx Substance Use: Yes (heroine/cocaine) - Past Surgical History Past Surgical History: No Previous - Surgical History Other/Comment: cyst drainage - Anesthesia Hx Anesthesia: Yes Hx Anesthesia Reactions: No Hx Malignant Hyperthermia: No - Suicidal Assessment Feels Threatened In Home Enviroment: No Family/Social History - Physician Review Nursing Documentation Reviewed: Yes Family/Social History: No Known Family HX Smoking Status: Heavy Smoker > 10 Cigarettes Daily Hx Alcohol Use: Yes Hx Substance Use: Yes (heroine/cocaine) Substance used: heroin and cocaine Hx Substance Use Treatment: No Allergies/Home Meds Allergies/Adverse Reactions: Allergies No Known Allergies Allergy (Verified 08/13/18 00:02) Review of Systems - Physician Review All systems were reviewed & negative as marked: Yes - Review of Systems Constitutional: Normal. absent: Fevers Eyes: Normal ENT: Normal Respiratory: Normal. absent: SOB, Cough Cardiovascular: Normal. absent: Chest Pain Gastrointestinal: Normal. absent: Abdominal Pain, Diarrhea, Nausea, Vomiting Musculoskeletal: Normal. absent: Back Pain, Neck Pain Skin: Cellulitis (+pain/redness/swelling in right hand) Neurological: Normal. absent: Headache, Dizziness Endocrine: Normal Hemo/Lymphatic: Normal Psychiatric: Normal Physical Exam Vital Signs Reviewed: Yes Vital Signs Temp Pulse Resp BP Pulse Ox 08/13/18 01:20 98.7 F 104 H 18 125/81 100 Temperature: Afebrile Blood Pressure: Normal Pulse: Regular Respiratory Rate: Normal Appearance: Positive for: Well-Appearing, Non-Toxic, Comfortable Pain Distress: None Mental Status: Positive for: Alert and Oriented X 3 - Systems Exam Head: Present: Atraumatic, Normocephalic Pupils: Present: PERRL Extroacular Muscles: Present: EOMI Conjunctiva: Present: Normal Mouth: Present: Moist Mucous Membranes Neck: Present: Normal Range of Motion Respiratory/Chest: Present: Clear to Auscultation, Good Air Exchange. No: Respiratory Distress, Accessory Muscle Use Cardiovascular: Present: Regular Rate and Rhythm, Normal S1, S2. No: Murmurs Abdomen: No: Tenderness, Distention, Peritoneal Signs Upper Extremity: Present: Edema (Right hand edema along the dorsal aspect of hand), NORMAL PULSES, Erythema (Area of erythema to dorsal aspect of right hand with purulent discharge coming out centrally), Neurovascularly Intact, Capillary Refill < 2s. No: Cyanosis, Normal ROM (limited ROM of fingers of right hand), Deformity Lower Extremity: Present: Normal Inspection. No: Edema Neurological: Present: GCS=15, CN II-XII Intact, Speech Normal Skin: Present: Warm, Dry, Normal Color. No: Rashes Psychiatric: Present: Alert, Oriented x 3, Normal Insight, Normal Concentration Medical Decision Making ED Course and Treatment: 08/13/18 02:09 Impression: 42 year old female complaining of right hand swelling, pain, and redness. Differential Diagnosis included but are not limited to: cellulitis Plan: -- Labs, blood cultures -- Urinalysis -- Wound cultures -- Vancomycin -- Zosyn -- Reassess and disposition Prior Visits: Notes and results from previous visits were reviewed. Patient was seen earlier this evening for same complaint and left against medical advice. Progress Notes: Case discussed with medical research assistant food production machine operator, who is aware and agrees with plan. 08/13/18 02:[address] Mouna Knight, who is aware and agrees with plan. Accepts pt in to hospitalist service. [facility] for hand cellulitis. - Lab Interpretations Microbiology Results: Microbiology Results 08/13/18 02:20 Blood-Venous Blood Culture - Preliminary NO GROWTH AFTER 3 DAYS 08/13/18 01:50 Blood-Venous Blood Culture - Preliminary NO GROWTH AFTER 3 DAYS 08/13/18 01:45 Hand - Right Gram Stain - Final 08/13/18 01:45 Hand - Right Wound Culture - Final Methicillin Resistant S Aureus Lab Results: 08/13/18 01:50 08/13/18 01:50 Lab Results 08/13/18 01:50: Sodium 140, Potassium 3.9, Chloride 102, Carbon Dioxide 29, Anion Gap 13, BUN 19, Creatinine 0.5 L, Est GFR ( Amer) > 60, Est GFR ( Non-Af Amer) > 60, Random Glucose 133 H, Calcium 8.6, Total Bilirubin 0.2, AST 28, ALT 19, Alkaline Phosphatase 106, Total Protein 6.8, Albumin 3.4, Globulin 3.4, Albumin/Globulin Ratio 1.0 L 08/13/18 01:50: WBC 9.2 D, RBC 3.71, Hgb 9.9 L, Hct 31.3 L, MCV 84.4, MCH 26.7 , MCHC 31.6, RDW 16.6 H, Plt Count 344, MPV 8.6, Gran % 66.0, Lymph % (Auto) 25.4, Sanders % (Auto) 4.0, Eos % (Auto) 4.3, Baso % (Auto) 0.3, Gran # 6.09, Lymph # (Auto) 2.3, Sanders # (Auto) 0.4, Eos # (Auto) 0.4, Baso # (Auto) 0.03 - Medication Orders Current Medication Orders: Ferrous Sulfate (Feosol) 324 mg PO TID [facility] Last Admin: 08/16/18 17:38 Dose: 324 mg Heparin Sodium (Porcine) (Heparin) 5,000 units SC Q12 BINTA PRN Reason: Protocol Last Admin: 08/16/18 09:07 Dose: 5,000 units Subcutaneous Administrations Document 08/16/18 09:07 SUMMER (Rec: 08/16/18 09:07 [id number][place] Injection Site MAR Injection Site Left Abdomen Charges for Administration # of Subcutaneous Administrations 1 Piperacillin Sod/Tazobactam Sod (Zosyn 3.375 In Ns 100ml) 100 mls @ 200 mls/hr IVPB Q6 BINTA PRN Reason: Protocol Stop: 08/27/18 12:01 Last Admin: 08/16/18 17:37 Dose: 200 mls/hr eMAR Start Stop Document 08/16/18 17:37 SUMMER (Rec: 08/16/18 17:38 JA [id number]) Intravenous Solution Start Date 08/16/18 Start Time 17:37 Vancomycin HCl (Vancomycin 1gm) 1 gm in 250 mls @ 167 mls/hr IVPB Q12 BINTA PRN Reason: Protocol Last Admin: 08/16/18 22:18 Dose: 167 mls/hr eMAR Start Stop Document 08/16/18 22:18 THEODORE (Rec: 08/16/18 22:18 BR [id number]) Intravenous Solution Start Date 08/16/18 Start Time 22:18 End Date 08/16/18 End time 23:48 Total Infusion Time 90 Lactated Ringer's (Lactated Ringer's) 1,000 mls @ 80 mls/hr IV .[id number] [facility] Last Admin: 08/16/18 17:40 Dose: 80 mls/hr eMAR Start Stop Document 08/16/18 17:40 SUMMER (Rec: 08/16/18 17:40 [id number]) Intravenous Solution Start Date 08/16/18 Start Time 14:40 Ketorolac Tromethamine (Toradol) 15 mg IVP Q8H PRN PRN Reason: Pain, moderate (4-7) Last Admin: 08/16/18 20:29 Dose: 15 mg MAR Pain Assessment Document 08/16/18 20:29 BR (Rec: 08/16/18 20:29 [id number]) Pain Reassessment Is this a pain reassessment? No Sleep Is patient sleeping during reassessment? No Presence of Pain Presence of Pain Yes Location Left, Right or Bilateral Right Pain Location Body Site Hand IVP Administration Document 08/16/18 20:29 BR (Rec: 08/16/18 20:29 BR [id number]) Charges for Administration # of IVP Administrations 1 Pantoprazole Sodium (Protonix Ec Tab) 20 mg PO 0600,1600 BINTA Last Admin: 08/16/18 17:38 Dose: 20 mg Discontinued Medications Diphenhydramine HCl (Benadryl) 25 mg PO ONCE ONE Stop: 08/15/18 21:36 Vancomycin HCl (Vancomycin 1gm) 1 gm in 250 mls @ 167 mls/hr IVPB STAT STA PRN Reason: Protocol Stop: 08/13/18 03:46 Last Admin: 08/13/18 03:47 Dose: 167 mls/hr eMAR Start Stop Document 08/13/18 03:47 SS (Rec: 08/13/18 03:47 SS [id number]) Intravenous Solution Start Date 08/13/18 Start Time 03:47 End Date 08/13/18 End time 05:17 Total Infusion Time 90 Piperacillin Sod/Tazobactam Sod (Zosyn 3.375 In Ns 100ml) 100 mls @ 200 mls/hr IVPB STAT STA PRN Reason: Protocol Stop: 08/13/18 02:46 Last Admin: 08/13/18 02:44 Dose: 200 mls/hr eMAR Start Stop Document 08/13/18 02:44 SS (Rec: 08/13/18 02:44 SS [id number]) Intravenous Solution Start Date 08/13/18 Start Time 02:44 End Date 08/13/18 End time 03:14 Total Infusion Time 30 Vancomycin HCl (Vancomycin 1gm) 1 gm in 250 mls @ 167 mls/hr IVPB DAILY BINTA PRN Reason: Protocol Last Admin: 08/14/18 10:27 Dose: 167 mls/hr eMAR Start Stop Document 08/14/18 10:27 DMC (Rec: 08/14/18 10:29 D[id number]) Intravenous Solution Start Date 08/14/18 Start Time 10:28 End Date 08/14/18 End time 11:58 Total Infusion Time 90 Piperacillin Sod/Tazobactam Sod (Zosyn 2.25 Gm In 0.9% 100 Ml) 2.25 gm in 100 mls @ 100 mls/hr IVPB Q6H BINTA PRN Reason: Protocol Stop: 08/13/18 14:59 Last Admin: 08/13/18 09:42 Dose: 100 mls/hr eMAR Start Stop Document 08/13/18 09:42 SUMMER (Rec: 08/13/18 09:42 SUMMER [id number]) Intravenous Solution Start Date 08/13/18 Start Time 09:42 Lactated Ringer's (Lactated Ringer's) 1,000 mls @ 100 mls/hr IV .Q10H BINTA Last Admin: 08/16/18 02:30 Dose: 100 mls/hr eMAR Start Stop Document 08/16/18 02:30 LMN (Rec: 08/16/18 02:49 LMN [email or web address] Intravenous Solution Start Date 08/16/18 Start Time 02:30 Ketorolac Tromethamine (Toradol) 15 mg IVP ONCE ONE Stop: 08/13/18 02:52 Last Admin: 08/13/18 03:00 Dose: 15 mg MAR Pain Assessment Document 08/13/18 03:00 SS (Rec: 08/13/18 03:00 SS [id number]) Pain Reassessment Is this a pain reassessment? No IVP Administration Document 08/13/18 03:00 SS (Rec: 08/13/18 03:00 SS [id number]) Charges for Administration # of IVP Administrations 1 Ketorolac Tromethamine (Toradol) 15 mg IVP Q8H PRN PRN Reason: Pain, moderate (4-7) Stop: 08/16/18 07:01 Last Admin: 08/15/18 20:37 Dose: 15 mg MAR Pain Assessment Document 08/15/18 20:37 LMN (Rec: 08/15/18 20:38 LMN [id number][place] Pain Reassessment Is this a pain reassessment? No Presence of Pain Presence of Pain Yes Pain Scale Used Pain Scale Used Numeric IVP Administration Document 08/15/18 20:37 LMN (Rec: 08/15/18 20:38 LMN [id number][place] Charges for Administration # of IVP Administrations 1 Re-Assess: MAR Pain Assessment Document 08/15/18 21:37 LMN (Rec: 08/16/18 02:50 LMN [email or web address] Pain Reassessment Is this a pain reassessment? Yes Presence of Pain Presence of Pain Yes Pain Scale Used Pain Scale Used Numeric Description Pain not relieved and LIP/MD was No notified Lorazepam (Ativan) 0.5 mg PO ONCE ONE PRN Reason: Protocol Stop: 08/14/18 21:24 Last Admin: 08/14/18 21:37 Dose: 0.5 mg Behavioural Document 08/14/18 21:37 PCO (Rec: 08/14/18 21:37 PCO [id number]) Maintenance Maintenance Dose Yes Nonmedicinal Nonmedicinal Interventions Therapeutic Communication Behavior Behavior for Medication: Anxiety Re-Assess: Reassess Psych Meds Document 08/14/18 22:37 PCO (Rec: 08/15/18 00:02 PCO [id number]) Reassess Psych Med Effective Potassium Chloride (K-Dur 20 Meq Er Tab) 40 meq PO ONCE ONE Stop: 08/15/18 16:56 Last Admin: 08/15/18 16:28 Dose: 40 meq - Scribe Statement The provider has reviewed the documentation as recorded by the Francis Bautista Provider Scribe Attestation: All medical record entries made by the Scribveronica were at my direction and personally dictated by me. I have reviewed the chart and agree that the record accurately reflects my personal performance of the history, physical exam, medical decision making, and the department course for this patient. I have also personally directed, reviewed, and agree with the discharge instructions and disposition. Disposition/Present on Arrival - Present on Arrival Any Indicators Present on Arrival: No History of DVT/PE: No History of Uncontrolled Diabetes: No Urinary Catheter: No History of Decub. Ulcer: No History Surgical Site Infection Following: None - Disposition Have Diagnosis and Disposition been Completed?: Yes Diagnosis: Cellulitis of hand Disposition: HOSPITALIZED Disposition Time: 02:10 Patient Problems: Current Active Problems Problem Status Onset Cellulitis of hand Acute Condition: FAIR
[2018-08-13] MEDS ORDERED: Piperacillin/Tazobact 3.375 gm 100 ML IVPB STA (02:17)
[2018-08-13] MEDS ORDERED: Vancomycin 1gm in NS 250ml 1 GM/250 ML BAG IVPB STA (02:17)
[2018-08-13 02:34] LABS: BASO # 0.03 K/mm3 (0.0-2.0); BASO % 0.3 % (0.0-3.0); EOS # 0.4 (0.0-0.7); EOS % 4.3 % (1.5-5.0); GRAN # 6.09 (1.4-6.5); HEMOGLOBIN 9.9 g/dL (12.0-16.0); LYMPH # 2.3 (1.2-3.4); LYMPH % 25.4 % (22.0-35.0); MEAN CELL VOLUME 84.4 fl (80.0-105.0); MEAN CORPUSCULAR HEMOGLOBIN 26.7 pg (25.0-35.0); MEAN CORPUSCULAR HGB CONC 31.6 g/dl (31.0-37.0); MEAN PLATELET VOLUME 8.6 fl (7.0-11.0); MONO # 0.4 (0.1-0.6); RBC 3.71 10^6/uL (3.5-6.1); RED CELL DISTRIBUTION WIDTH 16.6 % (11.5-14.5); WHITE BLOOD COUNT 9.2 10^3/ul (4.5-11.0)
--- NOTE | 2018-08-13 03:02 | CP.PCM.HP ---
History of Present Illness - History of Present Illness History of Present Illness: Patricio Barber, PGY-1 H&P for Hospitalist Service This is a 42 year old female with PMH of SLE, RA, hepatitis C, cellulitis, depression and IVDA presenting to the ED for one day history of right hand and wrist swelling and pain. Patient was recently discharged on 08/08 for similar symptoms and was given prescription for oral zyvox and augmentin; however patient was unable to get the antibiotics due to lack of insurance. During previous admission, MRI of right hand showed cellulitis with no osteomyelitis. US did not show abscess. Patient states right hand swelling initially improved after discharged on 08/08 but worsened over the last day. At this time, she denies fevers, nausea, chills, headaches, vomiting, CP, SOB, numbness, tingling , muscle weakness, recent trauma, recent sickness and recent travel. Patient denies recent use of IV drugs and state last use was before her previous admission on 08/06. 12 point ROS noted here, otherwise unremarkable. In the ED, patient started on IV vanc and zosyn and given toradol for pain. Patient will be admitted to [facility]. PMH: as above SH: smokes 1ppd for 10 years, denies alcohol use, IVDA with heroin, cocaine Sx: denies surgeries FH: mom had rectal cancer and lupus Meds: trazodone and ativan prn All: NKDA Present on Admission - Present on Admission Any Indicators Present on Admission: No Past Patient History - Infectious Disease Hx of Infectious Diseases: None - Tetanus Immunizations Tetanus Immunization: Up to Date, Unknown - Past Medical History & Family History Past Medical History?: Yes - Past Social History Smoking Status: Heavy Smoker > 10 Cigarettes Daily - CARDIAC Hx Cardiac Disorders: No Hx Hypertension: No - PULMONARY Hx Asthma: Yes Hx Bronchitis: Yes Hx Pneumonia: Yes - NEUROLOGICAL Hx Migraine: Yes - HEENT Hx HEENT Problems: No - RENAL Hx Kidney Stones: Yes - ENDOCRINE/METABOLIC Hx Systemic Lupus Erythematosus: Yes Other/Comment: Methotrexate taken for Lupus - HEMATOLOGICAL/ONCOLOGICAL Hx Anemia: Yes - INTEGUMENTARY Other/Comment: Past cellulitis to the lower extremities - MUSCULOSKELETAL/RHEUMATOLOGICAL Hx Arthritis: Yes Hx Fractures: Yes (Right pinky, left ankle) Hx Rheumatoid Arthritis: Yes - GASTROINTESTINAL Hx Gastrointestinal Disorders: No - GENITOURINARY/GYNECOLOGICAL Hx Sexually Transmitted Disorders: No - PSYCHIATRIC Hx Anxiety: Yes Hx Bipolar Disorder: Yes Hx Depression: Yes Hx Substance Use: Yes (heroine/cocaine) - SURGICAL HISTORY Other/Comment: cyst drainage - ANESTHESIA Hx Anesthesia: Yes Hx Anesthesia Reactions: No Hx Malignant Hyperthermia: No Meds Allergies/Adverse Reactions: Allergies Allergy/AdvReac Type Severity Reaction Status Date / Time No Known Allergies Allergy Verified 08/13/18 00:02 Physical Exam - Constitutional Appears: No Acute Distress - Head Exam Head Exam: ATRAUMATIC, NORMAL INSPECTION - Eye Exam Eye Exam: EOMI Pupil Exam: PERRL - ENT Exam ENT Exam: Mucous Membranes Moist - Respiratory Exam Respiratory Exam: Clear to Auscultation Bilateral. absent: Respiratory Distress - Cardiovascular Exam Cardiovascular Exam: REGULAR RHYTHM, +S1, +S2 - GI/Abdominal Exam GI & Abdominal Exam: Normal Bowel Sounds. absent: Firm, Guarding - Extremities Exam Extremities exam: Positive for: pedal pulses present. Negative for: calf tenderness Additional comments: right hand swelling that extends from the wrist distally to the tips of the fingers. Moderate tenderness and redness appreciated. Gross sanguinous clear fluid draining from base of first finger. Decreased active range of motion of right hand. No loss of sensation. Pulses palpable +2 B/L in upper extremities - Back Exam Back exam: NORMAL INSPECTION - Neurological Exam Neurological exam: Alert, Oriented x3 - Skin Skin Exam: Normal Color, Warm Results - Vital Signs Recent Vital Signs: Last Vital Signs Temp 98.7 F 08/13/18 01:20 Pulse 104 H 08/13/18 01:20 Resp 18 08/13/18 01:20 BP 125/81 08/13/18 01:20 Pulse Ox 100 08/13/18 01:20 - Labs Result Diagrams: 08/13/18 01:50 08/13/18 01:50 Assessment & Plan - Assessment and Plan (Free Text) Assessment: This is a 42 year old female with PMH of SLE, RA, hepatitis C, cellulitis, depression and IVDA presenting to the hospital for management of one day history of right hand swelling and tenderness concerning for recurrent cellulitis from previous admission last week. Will admit to medsurg and resume IV antibiotics. Plan: Right hand swelling/redness/tenderness -likely 2/2 recurrent cellulitis of right hand -Right hand MRI on 08/07 showed probable cellulitis over the dorsum of the hand, no evidence of osteomyelitis -US of right hand on 08/06 showed no evidence for DVT -patient discharged on 08/08 with oral zyvox and augmentin but unable to fill due to insurance problem -blood, urine and wound culture pending -Given vanc and zosyn in ED. Will continue vanc and zosyn on the medical floor -ID on consult, Dr. Price -General surg on consult, Dr. Zimmerman Anemia -iron deficiency vs anemia of chronic disease -MCV WNL, elevated RDW -Iron studies pending -retic count pending -peripheral smear pending -TSH, T4 pending -history of lupus History of IVDA -HIV non reactive 08/06/18 -Echo 08/07 showed no evidence of endocarditis or vegetations History of Hep C -Hep C antibody reactive on 08/06/18 -not currently on treatment -LFT WNL History of lupus, RA -not currently on treatment -BUN/Cr WNL -cardiolipin panel pending -lupus panel pending -counseled on following up with PCP/supervisor offset plate preparation PPX with protonix and heparin Patient seen and case discussed with attending, Dr. Suleman Barber, PGY1
[2018-08-13 03:06] LABS: ALBUMIN 3.4 g/dL (3.0-4.8); ALT/SGPT 19 U/L (7-56); AST/SGOT 28 U/L (14-36); BLOOD UREA NITROGEN 19 mg/dL (7-21); CALCIUM 8.6 mg/dL (8.4-10.5); GFR NON-AFRICAN AMERICAN > 60
[2018-08-13 03:35] LABS: URINE BILIRUBIN NEGATIVE (NEGATIVE); URINE BLOOD SMALL (NEGATIVE); URINE GLUCOSE (UA) NEGATIVE (NEGATIVE); URINE LEUKOCYTE ESTERASE MODERATE Leu/uL (NEGATIVE); URINE PROTEIN 30 mg/dL (<30 mg/dL); URINE UROBILINOGEN 0.2 E.U./dL (<1 E.U./dL)
[2018-08-13 03:36] LABS: URINE APPEARANCE SL CLOUDY (CLEAR); URINE COLOR YELLOW (YELLOW)
[2018-08-13 03:48] LABS: URINE RBC 0 - 2 /hpf (0-2)
[2018-08-13 03:49] LABS: URINE BACTERIA MOD (NEG); URINE EPITHELIAL CELLS MANY /hpf (0-5); URINE WBC TNTC /hpf (0-6)
--- NOTE | 2018-08-13 04:01 | CP.PCM.CON ---
History of Present Illness - History of Present Illness History of Present Illness: General Surgery consult note for Dr. Zimmerman Consulted for: right hand swelling/abscess Patient is a 42F with PMH of IVDA, lupus, and prior abscess of the right hand who presented to the ED today for worsening right hand swelling, erythema, and drainage from a wound over patient's right radial fossa. Patient states that she had no injury to the hand, or any injections into that hand recently but that the swelling just developed over a day on 08/05. Patient came in to the ER on 08/06 and was admitted with IV antibiotics, and was evaluated by the surgical team, but did not have clinical suspicion of drainable collection at that time. Ultrasound and MRI of the hand did not reveal any drainable collection. Patient was discharged home on a script for zyvoxx and augmentin, but patient was unable to fill them due to cost. Patient states that swelling originally improved but was acutely worse this AM and when she attempted to peel away skin, the lesion began to drain. Patient denies any finger numbness, paresthesias, or weakness but has impaired ROM she attributes to the swelling. Denies fevers, chills, or any other symptoms. Patient does admit to a history of "crocodile skin" which she states is an intermittent necrosis of the superificial skin of multiple areas of her body, secondary to a heroin injection years ago. Patient currently has a superficial lesion of the left forearm improving. PMH: IVDA, lupus, prior abscess right hand, bipolar, depression, dermatitis PSH: skin biopsy lower extremities ALL: NKDA Smokes 1ppd, occasional ETOH, IV heroine and cocaine Review of Systems - Review of Systems All systems: reviewed and no additional remarkable complaints except (as per HPI ) Past Patient History - Infectious Disease Hx of Infectious Diseases: None - Tetanus Immunizations Tetanus Immunization: Up to Date, Unknown - Past Medical History & Family History Past Medical History?: Yes Past Family History: Reviewed and not pertinent - Past Social History Smoking Status: Heavy Smoker > 10 Cigarettes Daily Alcohol: Occasional Drugs: Cocaine, Opiates - CARDIAC Hx Cardiac Disorders: No Hx Hypertension: No - PULMONARY Hx Asthma: Yes Hx Bronchitis: Yes Hx Pneumonia: Yes - NEUROLOGICAL Hx Migraine: Yes - HEENT Hx HEENT Problems: No - RENAL Hx Kidney Stones: Yes - ENDOCRINE/METABOLIC Hx Systemic Lupus Erythematosus: Yes Other/Comment: Methotrexate taken for Lupus - HEMATOLOGICAL/ONCOLOGICAL Hx Anemia: Yes - INTEGUMENTARY Other/Comment: Past cellulitis to the lower extremities - MUSCULOSKELETAL/RHEUMATOLOGICAL Hx Arthritis: Yes Hx Fractures: Yes (Right pinky, left ankle) Hx Rheumatoid Arthritis: Yes - GASTROINTESTINAL Hx Gastrointestinal Disorders: No - GENITOURINARY/GYNECOLOGICAL Hx Sexually Transmitted Disorders: No - PSYCHIATRIC Hx Anxiety: Yes Hx Bipolar Disorder: Yes Hx Depression: Yes Hx Substance Use: Yes (heroine/cocaine) - SURGICAL HISTORY Other/Comment: cyst drainage - ANESTHESIA Hx Anesthesia: Yes Hx Anesthesia Reactions: No Hx Malignant Hyperthermia: No Meds Allergies/Adverse Reactions: Allergies Allergy/AdvReac Type Severity Reaction Status Date / Time No Known Allergies Allergy Verified 08/13/18 00:02 - Medications Medications: Current Medications Heparin Sodium (Porcine) (Heparin) 5,000 units SC Q12 [facility] PRN Reason: Protocol Pantoprazole Sodium (Protonix Ec Tab) 20 mg PO 0600,1600 [facility] Physical Exam - Constitutional Appears: Non-toxic, No Acute Distress, Unkempt - Head Exam Head Exam: ATRAUMATIC, NORMOCEPHALIC - Eye Exam Eye Exam: Normal appearance. absent: Conjunctival injection, Scleral icterus - ENT Exam ENT Exam: Mucous Membranes Moist, Normal Oropharynx - Respiratory Exam Respiratory Exam: NORMAL BREATHING PATTERN. absent: Accessory Muscle Use, Respiratory Distress - Cardiovascular Exam Cardiovascular Exam: RRR - GI/Abdominal Exam GI & Abdominal Exam: Soft. absent: Distended - Extremities Exam Additional comments: right hand with 3+ dorsal pitting edema, erythema, and open lesion of the skin at the radial fossa approximatey 7mm in diameter with expressible serous and purulent fluid. Neurovascular and gross motor function intact of the right hand , but slight decreased strength of the right thumb in flexion and extension compared to left. Compartments soft. Decreased ROM in the fingers d/t swelling, decreased ROM in the right wrist in all directions. No erythema or swelling of the forearm. Left forearm with superficial excoration of the skin approximately 15cm in length and 8cm in diameter with areas of necrotic patches of skin, no erythema, crepitus, or fluctuance - Neurological Exam Neurological exam: Alert, Oriented x3 - Psychiatric Exam Psychiatric exam: Normal Affect, Normal Mood - Skin Skin Exam: Dry, Normal Color, Warm Results - Vital Signs Recent Vital Signs: Last Vital Signs Temp 98.7 F 08/13/18 01:20 Pulse 104 H 08/13/18 01:20 Resp 18 08/13/18 01:20 BP 125/81 08/13/18 01:20 Pulse Ox 98 08/13/18 03:56 - Labs Result Diagrams: 08/13/18 01:50 08/13/18 01:50 Labs: Laboratory Results - last 24 hr 08/13/18 02:28 Urine Color Yellow Urine Appearance Sl cloudy Urine pH 6.0 Ur Specific [place] >= 1.030 Urine Protein 30 H Urine Glucose (UA) Negative Urine Ketones Negative Urine Blood Small H Urine Nitrate Negative Urine Bilirubin Negative Urine Urobilinogen 0.2 Ur Leukocyte Esterase Moderate H Urine RBC 0 - 2 Urine WBC Tntc Ur Epithelial Cells Many Urine Bacteria Mod Assessment & Plan - Assessment and Plan (Free Text) Assessment: 42F with cellulitis and infection of the right wrist Plan: trend CBC F/U ID recs F/U wound culture F/U ultrasound of the right hand Continue IV antibiotics Continue PRN pain medications Lesion is actively draining at this time. If no significant fluid collection on US and paitient's exam improves, may consider conservative management. If patient does not improve, may consider incision and drainage vs. hand surgical consult Will discuss with Dr. Zimmerman, further recommendations per him Nena Montiel, PGY2
[2018-08-13] MEDS: Lactated Ringer's 1,000 ML IV SCH (06:13)
[2018-08-13] MEDS: Pantoprazole 20 mg EC Tab PO SCH ×2 (06:16→18:30)
[2018-08-13 07:41] LABS: BASO # 0.02 K/mm3 (0.0-2.0); BASO % 0.2 % (0.0-3.0); EOS # 0.5 (0.0-0.7); EOS % 5.4 % (1.5-5.0); GRAN # 5.41 (1.4-6.5); HEMOGLOBIN 9.3 g/dL (12.0-16.0); LYMPH # 2.2 (1.2-3.4); LYMPH % 25.7 % (22.0-35.0); MEAN CELL VOLUME 83.4 fl (80.0-105.0); MEAN CORPUSCULAR HEMOGLOBIN 26.2 pg (25.0-35.0); MEAN CORPUSCULAR HGB CONC 31.4 g/dl (31.0-37.0); MEAN PLATELET VOLUME 8.5 fl (7.0-11.0); MONO # 0.4 (0.1-0.6); MONO % 4.7 % (1.0-6.0); RBC 3.55 10^6/uL (3.5-6.1); RED CELL DISTRIBUTION WIDTH 16.4 % (11.5-14.5); WHITE BLOOD COUNT 8.5 10^3/ul (4.5-11.0)
[2018-08-13 07:51] LABS: INR 1.01; PARTIAL THROMBOPLASTIN TIME 29.8 Seconds (25.1-36.5); PROTHROMBIN TIME 11.6 SECONDS (9.4-12.5)
[2018-08-13 08:00] LABS: ALB/GLOB RATIO 0.9 (1.1-1.8); ALBUMIN 2.9 g/dL (3.0-4.8); ALT/SGPT 21 U/L (7-56); AST/SGOT 22 U/L (14-36); BLOOD UREA NITROGEN 15 mg/dL (7-21); CALCIUM 7.9 mg/dL (8.4-10.5); GFR NON-AFRICAN AMERICAN > 60; TOTAL IRON BINDING CAPACITY 266 ug/dL (265-497)
[2018-08-13] MEDS ORDERED: Piperacillin/Tazobact 2.25gm 2.25 GM/100 ML BAG IVPB SCH (08:00)
[2018-08-13 08:48] LABS: IRON 10 ug/dL (45-180)
[2018-08-13 08:49] LABS: % IRON SATURATION 4 % (20-55)
[2018-08-13 09:07] LABS: T4 9.4 ug/dL (5.5-11.0)
[2018-08-13 12:09] LABS: FERRITIN 73.2 ng/mL
[2018-08-13] MEDS: Vancomycin 1gm in NS 250ml 1 GM/250 ML BAG IVPB SCH (12:23)
[2018-08-13] MEDS: Piperacillin/Tazobact 3.375 gm 100 ML IVPB SCH ×2 (15:14→18:30)
--- NOTE | 2018-08-13 15:42 | US ---
Date of service: 08/13/2018 PROCEDURE: THE RIGHT HAND SOFT TISSUES ULTRASOUND HISTORY: right hand radial abscess/cellulitis COMPARISON: RIGHT HAND RADIOGRAPHS 08/06/2018. TECHNIQUE: High-frequency ultrasonography was performed using a linear transducer through the dorsal thumb soft tissues at the site of an apparent palpable abnormality. FINDINGS: No cystic or solid mass is seen within the dorsal proximal thumb/ 1st metacarpal soft tissues. No suspicious vascular pattern. IMPRESSION: Unremarkable limited right hand soft tissue ultrasound exam. No obvious abscess or other fluid collection appreciable. MRI may be helpful for follow-up clinically warranted.
[2018-08-13 19:27] LABS: BARBITURATES, UR NEGATIVE (NEGATIVE); BENZODIAZEPINES, UR NEGATIVE (NEGATIVE); OPIATES, UR POSITIVE (NEGATIVE); PHENCYCLIDINE, UR NEGATIVE (NEGATIVE)
--- NOTE | 2018-08-13 20:31 | CON ---
DATE: 08/13/2018 LOCATION: The patient is seen in room 575, bed 1. CHIEF COMPLAINT: Right hand infection times several days. HISTORY OF PRESENT ILLNESS: This is a 42-year-old female recently discharged from [facility] with history of active intravenous drug abuse and lupus and alcohol abuse and asthma, anxiety/depression and who was admitted, was given antibiotics for her right hand where she used intravenous drugs and was treated for cellulitis and had MRIs, which were negative for osteomyelitis, now returns. The patient was discharged on p.o. antibiotics. The patient states she was unable to get the antibiotics due to lack of insurance funding and now returns for further antibiotic use. The patient denies any fevers and chills. She says her only complaint is pain on her right hand. She has no chest pain, shortness of breath or cough. No abdominal pain, diarrhea or constipation. PAST MEDICAL HISTORY: Significant for alcoholism, lupus, asthma, anxiety, depression and she is an active intravenous drug abuser and past medical history also is positive for hepatitis C. She was tested HIV negative. She also has kidney stones in addition to psychiatric issues. She also has hepatitis B. PAST SURGICAL HISTORY: She has had a right psoas abscess drainage in 2016. ALLERGIES: THE PATIENT HAS NO KNOWN ALLERGIES. MEDICATIONS: She is on no antibiotics as an outpatient. PHYSICAL EXAMINATION: GENERAL: The patient is in bed, answering questions appropriately. Awake and alert. VITAL SIGNS: Temperature of 98, blood pressure is 120/80, respiratory rate of 18, heart rate of 105. HEENT: Unremarkable. NECK: Supple. LUNGS: Have decreased breath sounds. HEART: Normal S1, S2. ABDOMEN: Soft, nontender. EXTREMITIES: Examination of the hand, the patient has a primary dressing after the surgical team has reviewed it. The patient is requested not to remove the dressing. I have description of the hand at this time as per description of Dr. Nena Montiel and it is described as 3+ pitting edema. There is erythema. There is an open lesion of the skin of radial fossa approximately 7 mm in diameter expressing purulent fluid and neurovascular and gross motor functions are intact on the right hand and strength of the right thumb in flexion and extension is slightly decreased and pulses are intact. ASSESSMENT AND PLAN: A 42-year-old female with hepatitis C and intravenous drug abuser, lupus, alcoholism, asthma, anxiety, depression now with a right hand cellulitis and questionable abscess. We will treat the patient with vancomycin, Zosyn, pending surgical decision regarding intervention and drainage and ____ surgery is examined, the patient to call us so we can also evaluate and examine the hand. We will also check on the cultures. The patient's human immunodeficiency virus test was negative on last admission. She is at risk for developing human immunodeficiency virus. Bijan Leong MD
--- NOTE | 2018-08-13 20:56 | CP.PCM.PCO ---
Chief Complaint: Called to patient's room due to tea spilled on right medial foot of patient. Patient denies pain and states tea was warm. On examination, sensation intact with 5/5 muscle strength, no tenderness, and full range of motion preserved. No signs of eryhtema or discoloration appreciated.
[2018-08-14] MEDS: Piperacillin/Tazobact 3.375 gm 100 ML IVPB SCH ×4 (00:06→17:50)
[2018-08-14] MEDS: Lactated Ringer's 1,000 ML IV SCH (01:46)
[2018-08-14] MEDS: Pantoprazole 20 mg EC Tab PO SCH ×2 (06:05→16:40)
[2018-08-14 07:34] LABS: BASO # 0.02 K/mm3 (0.0-2.0); BASO % 0.3 % (0.0-3.0); EOS # 0.2 (0.0-0.7); EOS % 3.1 % (1.5-5.0); GRAN # 4.25 (1.4-6.5); GRAN % 63.1 % (50.0-68.0); HEMOGLOBIN 9.8 g/dL (12.0-16.0); LYMPH # 1.7 (1.2-3.4); LYMPH % 25.6 % (22.0-35.0); MEAN CELL VOLUME 82.6 fl (80.0-105.0); MEAN CORPUSCULAR HEMOGLOBIN 26.3 pg (25.0-35.0); MEAN CORPUSCULAR HGB CONC 31.8 g/dl (31.0-37.0); MONO # 0.5 (0.1-0.6); MONO % 7.9 % (1.0-6.0); RBC 3.73 10^6/uL (3.5-6.1); RED CELL DISTRIBUTION WIDTH 16.2 % (11.5-14.5); WHITE BLOOD COUNT 6.7 10^3/ul (4.5-11.0)
[2018-08-14 07:48] LABS: ALB/GLOB RATIO 0.9 (1.1-1.8); ALBUMIN 2.9 g/dL (3.0-4.8); ALT/SGPT 17 U/L (7-56); AST/SGOT 17 U/L (14-36); BLOOD UREA NITROGEN 5 mg/dL (7-21); CALCIUM 8.3 mg/dL (8.4-10.5); GFR NON-AFRICAN AMERICAN > 60
[2018-08-14] MEDS ORDERED: Bacitracin 500 Units/gm Oint Foilpak UD ONE (08:30)
--- NOTE | 2018-08-14 09:05 | CP.PCM.PN ---
<Rigo Beckerima - Last Filed: 08/14/18 11:48> Subjective - Date & Time of Evaluation Date of Evaluation: 08/14/18 Time of Evaluation: 08:30 - Subjective Subjective: [id number] ID Progress note for Dr. Price Patient seen and examined at bedside resting comfortably. No acute events overnight as per nursing and patient was afebrile. Denied acute complaints of fever, chills, headache, dizziness, chest pain, palpitations, SOB, cough, abd pain, nausea, vomiting, bowel/bladder complaints, pain/swelling in her legs b/ l. Patient's RUE was wrapped in dressings which was c/d/i. She denied any pain in the area but does have decreased ROM. Objective - Vital Signs/Intake and Output Vital Signs (last 24 hours): Temp Pulse Resp BP Pulse Ox 98.2 F 62 16 109/63 100 08/13/18 22:05 08/13/18 22:05 08/13/18 22:05 08/13/18 22:05 08/13/18 22:05 Intake and Output: 08/14/18 08/14/18 06:59 18:59 Intake Total 2400 Balance 2400 - Medications Medications: Current Medications Heparin Sodium (Porcine) (Heparin) 5,000 units SC Q12 [facility] PRN Reason: Protocol Last Admin: 08/13/18 21:02 Dose: Not Given Vancomycin HCl (Vancomycin 1gm) 1 gm in 250 mls @ 167 mls/hr IVPB DAILY [facility] PRN Reason: Protocol Last Admin: 08/13/18 12:23 Dose: 167 mls/hr Lactated Ringer's (Lactated Ringer's) 1,000 mls @ 100 mls/hr IV .Q10H [facility] Last Admin: 08/14/18 01:46 Dose: 100 mls/hr Piperacillin Sod/Tazobactam Sod (Zosyn 3.375 In Ns 100ml) 100 mls @ 200 mls/hr IVPB Q6 [facility] PRN Reason: Protocol Stop: 08/27/18 12:01 Last Admin: 08/14/18 06:05 Dose: 200 mls/hr Pantoprazole Sodium (Protonix Ec Tab) 20 mg PO 0600,1600 [facility] Last Admin: 08/14/18 06:05 Dose: 20 mg - Labs Labs: 08/14/18 07:00 08/14/18 07:00 PT 11.6 SECONDS (9.4-12.5) 08/13/18 07:00 INR 1.01 08/13/18 07:00 APTT 29.8 Seconds (25.1-36.5) 08/13/18 07:00 - Constitutional Appears: No Acute Distress, Unkempt - Head Exam Head Exam: ATRAUMATIC, NORMAL INSPECTION, NORMOCEPHALIC - Eye Exam Eye Exam: EOMI, Normal appearance. absent: Conjunctival injection, Scleral icterus - ENT Exam ENT Exam: Mucous Membranes Moist - Neck Exam Neck Exam: Full ROM. absent: Lymphadenopathy - Respiratory Exam Respiratory Exam: Clear to Ausculation Bilateral, NORMAL BREATHING PATTERN. absent: Accessory Muscle Use, Rales, Rhonchi, Wheezes, Respiratory Distress - Cardiovascular Exam Cardiovascular Exam: Tachycardia, +S1, +S2 - GI/Abdominal Exam GI & Abdominal Exam: Soft, Normal Bowel Sounds. absent: Firm, Guarding, Rigid, Tenderness - Rectal Exam Rectal Exam: Deferred - Extremities Exam Extremities Exam: absent: Pedal Edema Additional comments: R wrist wrapped in dressings c/d/i LUE wrapped in dressing c/d/i - Neurological Exam Neurological Exam: Alert, Awake, CN II-XII Intact, Oriented x3 - Psychiatric Exam Psychiatric exam: Normal Affect, Normal Mood Assessment and Plan - Assessment and Plan (Free Text) Assessment: 42yo female PMHx SLE, HCV, IVDA, EtOH abuse, asthma, anxiety, depression, Prior LE Cellulitis presents with R arm pain and swelling. Patient was recently discharged for similar complaints and returned to ED as she was unable to fill her Rx for Zyvox and had worsening pain and swelling in her R hand/wrist. Plan: -Patient on Vanc and Zosyn -LR @ 100 -soft tissue u/s unremarkable -MRI 08/07: fluid collection running length of forearm on radial side suspicious for abscess; possible cellulitis over dorsum of hand with no evidence of osteomyelitis f/u repeat MRI -wound culture 08/13: S. Aureus -blood culture x 2 08/13: negative prelim -urine culture 08/13: Strep Agalactiae Group B -Echo 08/06 unremarkable- no vegetations -Hep C Ab reactive -RPR negative -HIV negative Discussed with Dr. Albert Becker PGY3 <Kodi Price - Last Filed: 08/14/18 17:26> Objective - Vital Signs/Intake and Output Vital Signs (last 24 hours): Temp Pulse Resp BP Pulse Ox 98.3 F 80 20 113/75 100 08/14/18 06:00 08/14/18 06:00 08/14/18 06:00 08/14/18 06:00 08/14/18 06:00 Intake and Output: 08/14/18 08/14/18 06:59 18:59 Intake Total 2400 Balance 2400 - Medications Medications: Current Medications Heparin Sodium (Porcine) (Heparin) 5,000 units SC Q12 [facility] PRN Reason: Protocol Last Admin: 08/14/18 10:26 Dose: Not Given Lactated Ringer's (Lactated Ringer's) 1,000 mls @ 100 mls/hr IV .Q10H [facility] Last Admin: 08/14/18 01:46 Dose: 100 mls/hr Piperacillin Sod/Tazobactam Sod (Zosyn 3.375 In Ns 100ml) 100 mls @ 200 mls/hr IVPB Q6 [facility] PRN Reason: Protocol Stop: 08/27/18 12:01 Last Admin: 08/14/18 11:24 Dose: 200 mls/hr Vancomycin HCl (Vancomycin 1gm) 1 gm in 250 mls @ 167 mls/hr IVPB Q12 [facility] PRN Reason: Protocol Pantoprazole Sodium (Protonix Ec Tab) 20 mg PO 0600,1600 [facility] Last Admin: 08/14/18 06:05 Dose: 20 mg - Labs Labs: 08/14/18 07:00 08/14/18 07:00 PT 11.6 SECONDS (9.4-12.5) 08/13/18 07:00 INR 1.01 08/13/18 07:00 APTT 29.8 Seconds (25.1-36.5) 08/13/18 07:00 Assessment and Plan - Assessment and Plan (Free Text) Plan: Infectious Diseases Attending Physician Addendum Patient seen and examined, discussed with medical driver. I have reviewed the pertinent clinical information for the patient, including history of present illness, medical, personal and social histories, lab results and imaging findings. I agree with the above findings, assessment and plan. In addition, we will continue Vancomycin and Zosyn day 2 for sepsis due to right upper extremity cellulitis and will get MRI of hand and follow up Surgery evaluation and recommendations. Follow blood cx.
[2018-08-14] MEDS: Vancomycin 1gm in NS 250ml 1 GM/250 ML BAG IVPB SCH ×2 (10:27→21:37)
[2018-08-14 12:40] LABS: CARDIOLIPIN AB (IGA) <11 APL (<=11)
--- NOTE | 2018-08-14 14:40 | CP.PCM.PN ---
<Daljit Morgan Woody - Last Filed: 08/14/18 23:42> Subjective - Date & Time of Evaluation Date of Evaluation: 08/14/18 Time of Evaluation: 06:00 - Subjective Subjective: Pt seen and examined. Pt denies fever, chills, throbbing pain. Pt reports diarrhea. Objective - Vital Signs/Intake and Output Vital Signs (last 24 hours): Temp Pulse Resp BP Pulse Ox 99 F 91 H 20 117/71 100 08/14/18 14:00 08/14/18 14:00 08/14/18 14:00 08/14/18 14:00 08/14/18 14:00 Intake and Output: 08/14/18 08/14/18 06:59 18:59 Intake Total 2400 Balance 2400 - Medications Medications: Current Medications Heparin Sodium (Porcine) (Heparin) 5,000 units SC Q12 [facility] PRN Reason: Protocol Last Admin: 08/14/18 10:26 Dose: Not Given Lactated Ringer's (Lactated Ringer's) 1,000 mls @ 100 mls/hr IV .Q10H [facility] Last Admin: 08/14/18 01:46 Dose: 100 mls/hr Piperacillin Sod/Tazobactam Sod (Zosyn 3.375 In Ns 100ml) 100 mls @ 200 mls/hr IVPB Q6 [facility] PRN Reason: Protocol Stop: 08/27/18 12:01 Last Admin: 08/14/18 11:24 Dose: 200 mls/hr Vancomycin HCl (Vancomycin 1gm) 1 gm in 250 mls @ 167 mls/hr IVPB Q12 [facility] PRN Reason: Protocol Pantoprazole Sodium (Protonix Ec Tab) 20 mg PO 0600,1600 [facility] Last Admin: 08/14/18 06:05 Dose: 20 mg - Labs Labs: 08/14/18 07:00 08/14/18 07:00 PT 11.6 SECONDS (9.4-12.5) 08/13/18 07:00 INR 1.01 08/13/18 07:00 APTT 29.8 Seconds (25.1-36.5) 08/13/18 07:00 - Head Exam Head Exam: ATRAUMATIC, NORMOCEPHALIC - ENT Exam ENT Exam: Mucous Membranes Moist - Respiratory Exam Respiratory Exam: NORMAL BREATHING PATTERN. absent: Accessory Muscle Use, Wheezes, Respiratory Distress - Cardiovascular Exam Cardiovascular Exam: RRR. absent: Diastolic murmur - GI/Abdominal Exam GI & Abdominal Exam: Soft, Normal Bowel Sounds. absent: Tenderness - Extremities Exam Additional comments: right arm bandaged, swollen and erythematous, decreased ROM of right hand. - Neurological Exam Neurological Exam: Alert, Awake, Oriented x3 Assessment and Plan - Assessment and Plan (Free Text) Assessment: Pt is a 42 year old female with PMH of SLE, RA, hepatitis C, cellulitis, depression and IVDA who presenting to the hospital for management of one day history of right hand swelling and tenderness concerning for recurrent cellulitis from previous admission last week. Plan: Right Hand Cellulitis - Right hand MRI from last admission on Aug showed probable celluliltis, but no osteomyelitis - soft tissue US of right arm: unremarkable - R hand wound cultures grew staph aureus - blood cultures no growth for 24 hours - orthopedic surgery consulted, appreciate recs UTI - urine cultures grew Group B Strep Agalactiae Diarrhea - ordered C. diff - withold antidiarrheals until C. diff results are back Anemia - peripheral smear: normocytic, normochromic, with slight anisocytosis, no schistocytes present Pt seen and examined. Assessment and plan discussed with Dr. Ordonez. Daljit Morgan, PGY 1, Internal Medicine <Khushbu Ordonez - Last Filed: 08/15/18 08:40> Objective - Vital Signs/Intake and Output Vital Signs (last 24 hours): Temp Pulse Resp BP Pulse Ox 98.9 F 99 H 16 126/78 100 08/14/18 22:35 08/14/18 22:35 08/14/18 22:35 08/14/18 22:35 08/14/18 22:35 Intake and Output: 08/15/18 08/15/18 06:59 18:59 Intake Total 4080 Balance 4080 - Medications Medications: Current Medications Heparin Sodium (Porcine) (Heparin) 5,000 units SC Q12 [facility] PRN Reason: Protocol Last Admin: 08/15/18 00:01 Dose: Not Given Lactated Ringer's (Lactated Ringer's) 1,000 mls @ 100 mls/hr IV .Q10H [facility] Last Admin: 08/15/18 06:09 Dose: 100 mls/hr Piperacillin Sod/Tazobactam Sod (Zosyn 3.375 In Ns 100ml) 100 mls @ 200 mls/hr IVPB Q6 [facility] PRN Reason: Protocol Stop: 08/27/18 12:01 Last Admin: 08/15/18 06:07 Dose: 200 mls/hr Vancomycin HCl (Vancomycin 1gm) 1 gm in 250 mls @ 167 mls/hr IVPB Q12 [facility] PRN Reason: Protocol Last Admin: 08/14/18 21:37 Dose: 167 mls/hr Ketorolac Tromethamine (Toradol) 15 mg IVP Q8H PRN PRN Reason: Pain, moderate (4-7) Stop: 08/16/18 07:01 Last Admin: 08/15/18 00:06 Dose: 15 mg Pantoprazole Sodium (Protonix Ec Tab) 20 mg PO 0600,1600 [facility] Last Admin: 08/15/18 06:06 Dose: 20 mg - Labs Labs: 08/15/18 07:00 08/14/18 07:00 PT 11.6 SECONDS (9.4-12.5) 08/13/18 07:00 INR 1.01 08/13/18 07:00 APTT 29.8 Seconds (25.1-36.5) 08/13/18 07:00 Attending/Attestation - Attestation I have personally seen and examined this patient.: Yes I have fully participated in the care of the patient.: Yes I have reviewed all pertinent clinical information, including history, physical exam and plan: Yes Notes (Text): 08/14/18 42 year old female with past medical history of hepatitic C, IVDA and cellulitis who was recently discharged presented with recurrent cellulitis after failing to get her outpatient antibiotics. Soft tissue ultrasound was unremarkable. MRI is ordered. Continue with iv antibiotics as per ID. Wound culture is growing light growth staphylococcus aeureus. Surgery is following and orthopedics evaluation is also requested. Patient was counselled on risks of continued substance abuse. CDif study is ordered as patient reports diarrhea. Anemia likely multifactorial secondary to anemia of chronic disease, infection, hep C. Will review iron studies. Recommended outpatient follow up for hepatitis C. Khushbu Ordonez MD Hospitalist.
[2018-08-14] MEDS ORDERED: Gadodiamide 287 MG/ML VIAL (15ML) IV ONE (15:17)
--- NOTE | 2018-08-14 16:33 | MRI ---
Date of service: 08/14/2018 PROCEDURE: Postcontrast MRI images of the right wrist HISTORY: r/o abscess COMPARISON: Comparison is made with the previous noncontrast study dated 08/07/2018 TECHNIQUE: Axial coronal and sagittal T1 postcontrast images were obtained. FINDINGS: This study straight diffuse inflammatory changes in the soft tissue around the left wrist. No definite evidence of discrete drainable fluid collection. Heterogeneous enhancement with patchy heterogeneous signal noted in the carpal bones. Diffuse increased enhancement noted in the soft tissue included the muscles and tendon. [id number] soft tissue edema. IMPRESSION: No definite evidence of discrete drainable fluid collection. Moderate inflammatory changes associated with joint effusions and heterogeneous increased signal with patchy enhancement in the wrist more prominent at the carpal bones.
[2018-08-15] MEDS: Pantoprazole 20 mg EC Tab PO SCH ×2 (06:06→18:29)
[2018-08-15] MEDS: Lactated Ringer's 1,000 ML IV SCH ×2 (06:07→06:09)
[2018-08-15] MEDS: Piperacillin/Tazobact 3.375 gm 100 ML IVPB SCH ×4 (06:07→18:29)
[2018-08-15 08:10] LABS: BASO # 0.03 K/mm3 (0.0-2.0); BASO % 0.5 % (0.0-3.0); EOS # 0.2 (0.0-0.7); EOS % 2.9 % (1.5-5.0); GRAN # 3.14 (1.4-6.5); GRAN % 56.7 % (50.0-68.0); HEMOGLOBIN 9.2 g/dL (12.0-16.0); LYMPH # 1.8 (1.2-3.4); LYMPH % 32.9 % (22.0-35.0); MEAN CELL VOLUME 82.7 fl (80.0-105.0); MEAN CORPUSCULAR HEMOGLOBIN 26.5 pg (25.0-35.0); MEAN CORPUSCULAR HGB CONC 32.1 g/dl (31.0-37.0); MEAN PLATELET VOLUME 8.4 fl (7.0-11.0); MONO # 0.4 (0.1-0.6); RBC 3.47 10^6/uL (3.5-6.1); WHITE BLOOD COUNT 5.5 10^3/ul (4.5-11.0)
[2018-08-15 08:52] LABS: ALBUMIN 2.8 g/dL (3.0-4.8); ALT/SGPT 18 U/L (7-56); AST/SGOT 16 U/L (14-36); BLOOD UREA NITROGEN 10 mg/dL (7-21); CALCIUM 8.3 mg/dL (8.4-10.5); GFR NON-AFRICAN AMERICAN > 60
[2018-08-15] MEDS: Vancomycin 1gm in NS 250ml 1 GM/250 ML BAG IVPB SCH ×2 (10:33→21:22)
--- NOTE | 2018-08-15 14:35 | PN ---
DATE: 08/15/2018 SUBJECTIVE: The patient is seen in bed, in no acute distress. PHYSICAL EXAMINATION: VITAL SIGNS: Temperature of 98, blood pressure is 109/60, respiratory rate of 18, heart rate of 99. HEENT: Unremarkable. NECK: Supple. LUNGS: Have decreased breath sounds. HEART: Normal S1, S2. ABDOMINAL: Soft, nontender. LABORATORY EXAMINATION: Reveals a white count of 5.5, hemoglobin of 9, platelets of 320. BUN of 10, creatinine of 0.5. C-reactive protein is 80. Urinalysis is noted. Microbiology reveals urine for group B strep. Right hand has MRSA. The blood cultures are no growth. Review of orders reveals vanco and Zosyn. MRI is pending. ASSESSMENT AND PLAN: A 42-year-old female with lupus, hepatitis C, intravenous drug abuse, alcohol abuse, anxiety, asthma, depression. We will check on the MRI of the wrist, which is pending on vanco and Zosyn. We will follow closely with you this patient with history of intravenous drug abuse, alcoholism, anxiety, right hand cellulitis and questionable abscess. Bijan Leong MD
[2018-08-15] MEDS ORDERED: Potassium Chloride 20 mEq ER Tab PO ONE (16:55)
--- NOTE | 2018-08-15 18:25 | CP.PCM.PN ---
<Vimal Washburn - Last Filed: 08/16/18 01:35> Subjective - Date & Time of Evaluation Date of Evaluation: 08/15/18 Time of Evaluation: 18:25 - Subjective Subjective: Internal Medicine Progress Note (Hospitalist): Emelyn PGY2 Patient seen and assessed at bedside. No acute events noted overnight. Patient reports that her hand pain has improved since admission. Currently she denies any fevers, chills, headache, chest pain, SOB, abdominal pain, N/V/D/C, changes in urine output and any new skin changes. Objective - Vital Signs/Intake and Output Vital Signs (last 24 hours): Temp Pulse Resp BP Pulse Ox 98.3 F 91 H 20 135/82 99 08/15/18 14:00 08/15/18 14:00 08/15/18 14:00 08/15/18 14:00 08/15/18 14:00 Intake and Output: 08/15/18 08/15/18 06:59 18:59 Intake Total 4080 720 Balance 4080 720 - Medications Medications: Current Medications Heparin Sodium (Porcine) (Heparin) 5,000 units SC Q12 [facility]INTA PRN Reason: Protocol Last Admin: 08/15/18 10:33 Dose: 5,000 units Lactated Ringer's (Lactated Ringer's) 1,000 mls @ 100 mls/hr IV .Q10H [facility]INTA Last Admin: 08/15/18 06:09 Dose: 100 mls/hr Piperacillin Sod/Tazobactam Sod (Zosyn 3.375 In Ns 100ml) 100 mls @ 200 mls/hr IVPB Q6 [facility]INTA PRN Reason: Protocol Stop: 08/27/18 12:01 Last Admin: 08/15/18 12:57 Dose: 200 mls/hr Vancomycin HCl (Vancomycin 1gm) 1 gm in 250 mls @ 167 mls/hr IVPB Q12 BINTA PRN Reason: Protocol Last Admin: 08/15/18 10:33 Dose: 167 mls/hr Ketorolac Tromethamine (Toradol) 15 mg IVP Q8H PRN PRN Reason: Pain, moderate (4-7) Stop: 08/16/18 07:01 Last Admin: 08/15/18 12:55 Dose: 15 mg Pantoprazole Sodium (Protonix Ec Tab) 20 mg PO 0600,1600 [facility]TA Last Admin: 08/15/18 06:06 Dose: 20 mg - Labs Labs: 08/15/18 07:00 08/15/18 07:00 PT 11.6 SECONDS (9.4-12.5) 08/13/18 07:00 INR 1.01 08/13/18 07:00 APTT 29.8 Seconds (25.1-36.5) 08/13/18 07:00 - Constitutional Appears: Non-toxic, No Acute Distress - Head Exam Head Exam: ATRAUMATIC, NORMOCEPHALIC - Eye Exam Eye Exam: EOMI, Normal appearance - ENT Exam ENT Exam: Mucous Membranes Moist - Neck Exam Neck Exam: Full ROM - Respiratory Exam Respiratory Exam: Clear to Ausculation Bilateral, NORMAL BREATHING PATTERN. absent: Accessory Muscle Use, Chest Wall Tenderness, Decreased Breath Sounds, Prolonged Expiratory Phase, Rales, Rhonchi, Wheezes, Respiratory Distress, Stridor - Cardiovascular Exam Cardiovascular Exam: REGULAR RHYTHM, RRR, +S1, +S2. absent: Bradycardia, Tachycardia, Clicks, Diastolic murmur, Gallop, Irregular Rhythm, JVD, Rubs, +S4 , Murmur - GI/Abdominal Exam GI & Abdominal Exam: Soft, Normal Bowel Sounds. absent: Tenderness - Extremities Exam Extremities Exam: absent: Calf Tenderness, Joint Swelling, Pedal Edema Additional comments: Distal RUE wound dressing clean, dry and intact - Neurological Exam Neurological Exam: Alert, Awake, Normal Gait, Oriented x3 - Psychiatric Exam Psychiatric exam: Normal Affect, Normal Mood - Skin Skin Exam: Dry, Intact, Normal Color, Warm Assessment and Plan - Assessment and Plan (Free Text) Assessment: 42 year old female with a past medical history significant for Hepatitis C, IVDA and cellulitis who was recently discharged and now presented with recurrent right hand cellulitis after failing to get her outpatient antibiotics Plan: 1. RUE Cellulitis -MRI of RUE/Wrist showed no definite evidence of discrete drainable fluid collection, moderate inflammatory changes associated with joint effusions and heterogeneous increased signal with patchy enhancement in the wrist more prominent at the carpal bones -Soft Tissue US of Right Arm unremarkable -Continue IV Vancomycin and Zosyn -Continue LR at 100mls/hr -Continue Toradol for pain control -Surgery, ID and Orthopedic Surgery consulted, all recommendations appreciated 2. Diarrhea -Improved -C. Diff serology pending 3. Anemia -Iron and %saturation low -Ferritin and TIBC within normal limits -Peripheral smear unremarkable 4. Hepatitis C -Recommend outpatient follow up upon discharge GI Prophylaxis: Protonix DVT Prophylaxis: Heparin Diet: Regular Patient seen and case discussed with attending, Dr. Ordonez. <Khushbu Ordonez - Last Filed: 08/16/18 08:20> Objective - Vital Signs/Intake and Output Vital Signs (last 24 hours): Temp Pulse Resp BP Pulse Ox 99.0 F 77 20 144/91 H 100 08/16/18 06:00 08/16/18 06:00 08/16/18 06:00 08/16/18 06:00 08/16/18 06:00 Intake and Output: 08/16/18 08/16/18 06:59 18:59 Intake Total 720 Balance 720 - Medications Medications: Current Medications Ferrous Sulfate (Feosol) 324 mg PO TID BINTA Heparin Sodium (Porcine) (Heparin) 5,000 units SC Q12 BINTA PRN Reason: Protocol Last Admin: 08/15/18 21:33 Dose: Not Given Lactated Ringer's (Lactated Ringer's) 1,000 mls @ 100 mls/hr IV .Q10H [facility] Last Admin: 08/16/18 02:30 Dose: 100 mls/hr Piperacillin Sod/Tazobactam Sod (Zosyn 3.375 In Ns 100ml) 100 mls @ 200 mls/hr IVPB Q6 [facility]INTA PRN Reason: Protocol Stop: 08/27/18 12:01 Last Admin: 08/16/18 05:42 Dose: 200 mls/hr Vancomycin HCl (Vancomycin 1gm) 1 gm in 250 mls @ 167 mls/hr IVPB Q12 [facility]TA PRN Reason: Protocol Last Admin: 08/15/18 21:22 Dose: 167 mls/hr Pantoprazole Sodium (Protonix Ec Tab) 20 mg PO 0600,1600 [facility] Last Admin: 08/16/18 05:39 Dose: 20 mg - Labs Labs: 08/16/18 07:00 08/15/18 07:00 PT 11.6 SECONDS (9.4-12.5) 08/13/18 07:00 INR 1.01 08/13/18 07:00 APTT 29.8 Seconds (25.1-36.5) 08/13/18 07:00 Attending/Attestation - Attestation I have personally seen and examined this patient.: Yes I have fully participated in the care of the patient.: Yes I have reviewed all pertinent clinical information, including history, physical exam and plan: Yes Notes (Text): 08/15/18 42 year old female with past medical history of hepatitic C, IVDA and cellulitis who was recently discharged presented with recurrent cellulitis after failing to get her outpatient antibiotics. MRI showed no definite evidence of discrete drainable fluid collection, moderate inflammatory changes associated with joint effusions and heterogeneous increased signal with patchy enhancement in the wrist more prominent at the carpal bones. Soft tissue ultrasound was unremarkable. Continue with iv antibiotics as per ID. Wound culture is growing MRSA. Surgery is following and orthopedics evaluation was also requested. Patient was counselled on risks of continued substance abuse. CDif study is ordered as patient reports diarrhea. Anemia likely multifactorial secondary to anemia of chronic disease, infection, hep C. Will start on po iron. Recommended outpatient follow up for hepatitis C. Khushbu Ordonez MD Hospitalist.
[2018-08-16] MEDS: Piperacillin/Tazobact 3.375 gm 100 ML IVPB SCH ×4 (00:46→17:37)
[2018-08-16] MEDS: Lactated Ringer's 1,000 ML IV SCH ×2 (02:30→17:40)
[2018-08-16] MEDS: Pantoprazole 20 mg EC Tab PO SCH ×2 (05:39→17:38)
[2018-08-16 07:58] LABS: BASO # 0.04 K/mm3 (0.0-2.0); BASO % 0.5 % (0.0-3.0); EOS # 0.3 (0.0-0.7); EOS % 3.4 % (1.5-5.0); GRAN # 4.67 (1.4-6.5); GRAN % 61.3 % (50.0-68.0); HEMOGLOBIN 9.7 g/dL (12.0-16.0); LYMPH # 2.2 (1.2-3.4); LYMPH % 28.2 % (22.0-35.0); MEAN CELL VOLUME 83.1 fl (80.0-105.0); MEAN CORPUSCULAR HGB CONC 31.3 g/dl (31.0-37.0); MEAN PLATELET VOLUME 8.4 fl (7.0-11.0); MONO # 0.5 (0.1-0.6); MONO % 6.6 % (1.0-6.0); RBC 3.73 10^6/uL (3.5-6.1); RED CELL DISTRIBUTION WIDTH 15.7 % (11.5-14.5); WHITE BLOOD COUNT 7.6 10^3/ul (4.5-11.0)
[2018-08-16 08:10] VITALS: RESP 20
[2018-08-16 08:20] LABS: ALB/GLOB RATIO 0.9 (1.1-1.8); ALT/SGPT 17 U/L (7-56); AST/SGOT 19 U/L (14-36); BLOOD UREA NITROGEN 6 mg/dL (7-21); CALCIUM 8.8 mg/dL (8.4-10.5); GFR NON-AFRICAN AMERICAN > 60
[2018-08-16] MEDS: Vancomycin 1gm in NS 250ml 1 GM/250 ML BAG IVPB SCH ×2 (09:08→22:18)
--- NOTE | 2018-08-16 14:20 | CP.PCM.PN ---
<Sukhjinder Mendoza - Last Filed: 08/16/18 14:16> Subjective - Date & Time of Evaluation Date of Evaluation: 08/16/18 Time of Evaluation: 14:17 - Subjective Subjective: Patient seen and examined at bedside. Patient complaining of hand pain. Denies chest pain, shortness of breath, nausea, vomiting, diarrhea, fever, chills. Objective - Vital Signs/Intake and Output Vital Signs (last 24 hours): Temp Pulse Resp BP Pulse Ox 99.0 F 77 20 144/91 H 100 08/16/18 06:00 08/16/18 06:00 08/16/18 06:00 08/16/18 06:00 08/16/18 06:00 Intake and Output: 08/16/18 08/16/18 06:59 18:59 Intake Total 720 Balance 720 - Medications Medications: Current Medications Ferrous Sulfate (Feosol) 324 mg PO TID [facility] Last Admin: 08/16/18 09:07 Dose: 324 mg Heparin Sodium (Porcine) (Heparin) 5,000 units SC Q12 BINTA PRN Reason: Protocol Last Admin: 08/16/18 09:07 Dose: 5,000 units Lactated Ringer's (Lactated Ringer's) 1,000 mls @ 100 mls/hr IV .Q10H [facility]TA Last Admin: 08/16/18 02:30 Dose: 100 mls/hr Piperacillin Sod/Tazobactam Sod (Zosyn 3.375 In Ns 100ml) 100 mls @ 200 mls/hr IVPB Q6 [facility]INTA PRN Reason: Protocol Stop: 08/27/18 12:01 Last Admin: 08/16/18 12:39 Dose: 200 mls/hr Vancomycin HCl (Vancomycin 1gm) 1 gm in 250 mls @ 167 mls/hr IVPB Q12 [facility]INTA PRN Reason: Protocol Last Admin: 08/16/18 09:08 Dose: 167 mls/hr Ketorolac Tromethamine (Toradol) 15 mg IVP Q8H PRN PRN Reason: Pain, moderate (4-7) Last Admin: 08/16/18 12:39 Dose: 15 mg Pantoprazole Sodium (Protonix Ec Tab) 20 mg PO 0600,1600 [facility] Last Admin: 08/16/18 05:39 Dose: 20 mg - Labs Labs: 08/16/18 07:00 09/16/18 07:00 PT 11.6 SECONDS (9.4-12.5) 08/13/18 07:00 INR 1.01 08/13/18 07:00 APTT 29.8 Seconds (25.1-36.5) 08/13/18 07:00 - Constitutional Appears: Non-toxic, No Acute Distress - Head Exam Head Exam: ATRAUMATIC, NORMAL INSPECTION, NORMOCEPHALIC - ENT Exam ENT Exam: Mucous Membranes Moist - Respiratory Exam Respiratory Exam: Clear to Ausculation Bilateral, NORMAL BREATHING PATTERN - Cardiovascular Exam Cardiovascular Exam: RRR, +S1, +S2 - GI/Abdominal Exam GI & Abdominal Exam: Soft, Normal Bowel Sounds. absent: Tenderness - Extremities Exam Extremities Exam: absent: Pedal Edema Additional comments: Hand bandaged, dressing clean, dry, and intact. - Neurological Exam Neurological Exam: Alert, Awake, Oriented x3 - Psychiatric Exam Psychiatric exam: Normal Affect, Normal Mood - Skin Skin Exam: Intact, Normal Color, Warm Assessment and Plan - Assessment and Plan (Free Text) Plan: 42 year old female with a past medical history significant for Hepatitis C, IVDA and cellulitis presents with recurrent right hand cellulitis. 1. Right hand Cellulitis -Continue IV Vancomycin and Zosyn as per ID -Change LR to 80 cc/hr -Continue Toradol for pain control -Surgery, ID and Orthopedic Surgery following 2. Diarrhea -C. Diff serology pending -Remains chronic 3. Iron deficiency anemia -Will start patient on oral ferrous sulfate once infection subsides -Peripheral smear unremarkable 4. Hepatitis C -Recommend outpatient follow up upon discharge 5. DVT/GI Prophylaxis -Protonix -Heparin Reji, PGY-3 <Khushbu Ordonez - Last Filed: 08/16/18 19:11> Objective - Vital Signs/Intake and Output Vital Signs (last 24 hours): Temp Pulse Resp BP Pulse Ox 98.7 F 81 20 137/87 100 08/16/18 14:00 08/16/18 14:00 08/16/18 14:00 08/16/18 14:00 08/16/18 14:00 Intake and Output: 08/16/18 08/17/18 18:59 06:59 Intake Total 960 Balance 960 - Medications Medications: Current Medications Ferrous Sulfate (Feosol) 324 mg PO TID [facility] Last Admin: 08/16/18 17:38 Dose: 324 mg Heparin Sodium (Porcine) (Heparin) 5,000 units SC Q12 BINTA PRN Reason: Protocol Last Admin: 08/16/18 09:07 Dose: 5,000 units Piperacillin Sod/Tazobactam Sod (Zosyn 3.375 In Ns 100ml) 100 mls @ 200 mls/hr IVPB Q6 [facility]INTA PRN Reason: Protocol Stop: 08/27/18 12:01 Last Admin: 08/16/18 17:37 Dose: 200 mls/hr Vancomycin HCl (Vancomycin 1gm) 1 gm in 250 mls @ 167 mls/hr IVPB Q12 [facility]INTA PRN Reason: Protocol Last Admin: 08/16/18 09:08 Dose: 167 mls/hr Lactated Ringer's (Lactated Ringer's) 1,000 mls @ 80 mls/hr IV .[id number] [facility]INTA Last Admin: 08/16/18 17:40 Dose: 80 mls/hr Ketorolac Tromethamine (Toradol) 15 mg IVP Q8H PRN PRN Reason: Pain, moderate (4-7) Last Admin: 08/16/18 12:39 Dose: 15 mg Pantoprazole Sodium (Protonix Ec Tab) 20 mg PO 0600,1600 [facility] Last Admin: 08/16/18 17:38 Dose: 20 mg - Labs Labs: 08/16/18 07:00 08/16/18 07:00 PT 11.6 SECONDS (9.4-12.5) 08/13/18 07:00 INR 1.01 08/13/18 07:00 APTT 29.8 Seconds (25.1-36.5) 08/13/18 07:00 Attending/Attestation - Attestation I have personally seen and examined this patient.: Yes I have fully participated in the care of the patient.: Yes I have reviewed all pertinent clinical information, including history, physical exam and plan: Yes Notes (Text): 08/16/18 19:10 42 year old female with past medical history of hepatitic C, IVDA and cellulitis who was recently discharged presented with recurrent cellulitis after failing to get her outpatient antibiotics. MRI showed no definite evidence of discrete drainable fluid collection, moderate inflammatory changes associated with joint effusions and heterogeneous increased signal with patchy enhancement in the wrist more prominent at the carpal bones. Soft tissue ultrasound was unremarkable. Continue with iv antibiotics as per ID. Wound culture is growing MRSA. Surgery is following and orthopedics evaluation is pending. Patient was counselled on risks of continued substance abuse. CDif study is ordered as patient reports diarrhea. Anemia likely multifactorial secondary to anemia of chronic disease, infection, hep C. Patient is on iron supplementation. Recommended outpatient follow up for hepatitis C. Khushbu Ordonez MD Hospitalist.
--- NOTE | 2018-08-16 15:42 | PN ---
DATE: 08/16/2018 SUBJECTIVE: The patient is in bed, in no acute distress, nontoxic. PHYSICAL EXAMINATION: VITAL SIGNS: On exam, temperature is 99, blood pressure is 140/80, respiratory rate of 20, heart rate of 80. HEENT: Examination of HEENT is unremarkable. NECK: Supple. LUNGS: Have decreased breath sounds. HEART: Normal S1, S2. ABDOMEN: Soft, nontender. LABORATORY DATA: Laboratory examination reveals a white count of 7.6, hemoglobin of 9, platelets of 343. BUN of 6, creatinine of 0.6. Urinalysis is noted. Microbiology reveals hand has MRSA. Urine has group B Strep. Review of orders reveals the patient to have vancomycin and Zosyn. ASSESSMENT AND PLAN: A 42-year-old female, seen in room 575, bed 2 with a history of lupus, hepatitis C, intravenous drug abuse, alcohol abuse, asthma, anxiety, depression and methicillin-resistant Staphylococcus aureus hand infection and cellulitis and questionable abscess and group B Streptococcus in the urine. Awaiting for the wrist MRI findings, still pending. Bijan Leong MD
[2018-08-17] MEDS: Piperacillin/Tazobact 3.375 gm 100 ML IVPB SCH ×2 (06:09→06:10)
[2018-08-17] MEDS: Pantoprazole 20 mg EC Tab PO SCH (06:10)
[2018-08-17 07:50] LABS: BASO # 0.06 K/mm3 (0.0-2.0); BASO % 0.7 % (0.0-3.0); EOS # 0.2 (0.0-0.7); EOS % 2.6 % (1.5-5.0); GRAN # 5.25 (1.4-6.5); GRAN % 65.3 % (50.0-68.0); HEMOGLOBIN 10.1 g/dL (12.0-16.0); LYMPH # 2.1 (1.2-3.4); LYMPH % 26.1 % (22.0-35.0); MEAN CELL VOLUME 82.4 fl (80.0-105.0); MEAN CORPUSCULAR HEMOGLOBIN 26.1 pg (25.0-35.0); MEAN CORPUSCULAR HGB CONC 31.7 g/dl (31.0-37.0); MEAN PLATELET VOLUME 8.2 fl (7.0-11.0); MONO # 0.4 (0.1-0.6); MONO % 5.3 % (1.0-6.0); RBC 3.87 10^6/uL (3.5-6.1); RED CELL DISTRIBUTION WIDTH 15.8 % (11.5-14.5); WHITE BLOOD COUNT 8.1 10^3/ul (4.5-11.0)
[2018-08-17 08:24] VITALS: TEMP 98.1
[2018-08-17 08:35] LABS: ALBUMIN 3.4 g/dL (3.0-4.8); ALT/SGPT 16 U/L (7-56); AST/SGOT 26 U/L (14-36); BLOOD UREA NITROGEN 10 mg/dL (7-21); CALCIUM 9.1 mg/dL (8.4-10.5); GFR NON-AFRICAN AMERICAN > 60
--- NOTE | 2018-08-17 08:48 | CP.PCM.PN ---
<RositaJohana - Last Filed: 08/17/18 13:10> Subjective - Date & Time of Evaluation Date of Evaluation: 08/17/18 Time of Evaluation: 08:47 - Subjective Subjective: Pgy3 ID Progress note for Dr. Price Patient seen and examined at bedside. Nursing reported patient's IV was infiltrated and she was unable to get IV abx this AM. Patient reported she felt much better this AM and had no overnight events. She unwrapped her dressing of her right wrist and was impressed with how much she was able to move her hand. She reported pain had much improved and she is able to make half a fist; however unable to touch her 5th and 4th fingers with her thumb. Patient is eating and drinking well and no longer wants to be put on fluids. She denied acute complaints of fever, chills, headache, dizziness, chest pain, palpitations , SOB, cough, abdominal pain, nausea, vomiting, bowel/bladder complaints, pain/ swelling in her legs b/l. Patient is ambulating around her room. She is eager to be discharged and is aware that she should follow up at [facility] and is in the process of acquiring [employer]. Objective - Vital Signs/Intake and Output Vital Signs (last 24 hours): Temp Pulse Resp BP Pulse Ox 98.1 F 75 20 124/78 98 08/17/18 08:23 08/17/18 08:23 08/17/18 08:23 08/17/18 08:23 08/17/18 08:23 Intake and Output: 08/17/18 08/17/18 06:59 18:59 Intake Total 180 Balance 180 - Medications Medications: Current Medications Ferrous Sulfate (Feosol) 324 mg PO TID [facility] Last Admin: 08/16/18 17:38 Dose: 324 mg Heparin Sodium (Porcine) (Heparin) 5,000 units SC Q12 [facility]TA PRN Reason: Protocol Last Admin: 08/17/18 04:40 Dose: Not Given Piperacillin Sod/Tazobactam Sod (Zosyn 3.375 In Ns 100ml) 100 mls @ 200 mls/hr IVPB Q6 [facility]TA PRN Reason: Protocol Stop: 08/27/18 12:01 Last Admin: 08/17/18 06:10 Dose: 200 mls/hr Vancomycin HCl (Vancomycin 1gm) 1 gm in 250 mls @ 167 mls/hr IVPB Q12 [facility]TA PRN Reason: Protocol Last Admin: 08/16/18 22:18 Dose: 167 mls/hr Lactated Ringer's (Lactated Ringer's) 1,000 mls @ 80 mls/hr IV .[id number] [facility] Last Admin: 08/16/18 17:40 Dose: 80 mls/hr Ketorolac Tromethamine (Toradol) 15 mg IVP Q8H PRN PRN Reason: Pain, moderate (4-7) Last Admin: 08/17/18 08:32 Dose: 15 mg Pantoprazole Sodium (Protonix Ec Tab) 20 mg PO 0600,1600 [facility] Last Admin: 08/17/18 06:10 Dose: 20 mg - Labs Labs: 08/17/18 07:15 08/17/18 07:15 PT 11.6 SECONDS (9.4-12.5) 08/13/18 07:00 INR 1.01 08/13/18 07:00 APTT 29.8 Seconds (25.1-36.5) 08/13/18 07:00 - Constitutional Appears: Non-toxic, No Acute Distress, Unkempt - Head Exam Head Exam: ATRAUMATIC, NORMAL INSPECTION, NORMOCEPHALIC - Eye Exam Eye Exam: EOMI, Normal appearance. absent: Conjunctival injection, Scleral icterus - ENT Exam ENT Exam: Mucous Membranes Moist - Neck Exam Neck Exam: Full ROM, Normal Inspection - Respiratory Exam Respiratory Exam: Clear to Ausculation Bilateral, NORMAL BREATHING PATTERN. absent: Accessory Muscle Use, Rales, Rhonchi, Wheezes, Respiratory Distress - Cardiovascular Exam Cardiovascular Exam: +S1, +S2 - GI/Abdominal Exam GI & Abdominal Exam: Soft, Normal Bowel Sounds. absent: Firm, Guarding, Rigid, Tenderness - Rectal Exam Rectal Exam: Deferred - Extremities Exam Additional comments: RUE wound noted- minimal draining - Neurological Exam Neurological Exam: Alert, Awake, Oriented x3 - Psychiatric Exam Psychiatric exam: Normal Affect, Normal Mood - Skin Skin Exam: Normal Color, Warm Assessment and Plan - Assessment and Plan (Free Text) Assessment: 42yo female PMHx SLE, HCV, IVDA, EtOH abuse, asthma, anxiety, depression, Prior LE Cellulitis presents with R arm pain and swelling. Patient was recently discharged for similar complaints and returned to ED as she was unable to fill her Rx for Zyvox and had worsening pain and swelling in her R hand/wrist. Plan: -Zyvox 600mg po bid for 7 more days [first dose 08/17] recommend patient to f/u with [facility] for PMD and to have meds-to -bed for PO Abx upon discharge patient also needs CBC in 7 days to trend WBC -Vanc and Zosyn discontinued; consider d/c of IVF as patent has good PO intake -soft tissue u/s unremarkable -MRI 08/07: fluid collection running length of forearm on radial side suspicious for abscess; possible cellulitis over dorsum of hand with no evidence of osteomyelitis repeat MRI wrist f/u read repeat MRI UE: no definite evidence of discrete drainable fluid collection. Moderate inflammatory changes associated with joint effusions and heterogeneous increased signal with patchy enhancement in the wrist more prominent at the carpal bones -wound culture 08/13: MRSA -blood culture x 2 08/13: negative prelim -urine culture 08/13: Strep Agalactiae Group B -Echo 08/06 unremarkable- no vegetations -Hep C Ab reactive -RPR negative -HIV negative Discussed with Dr. Albert Becker PGY3 <Kodi Price - Last Filed: 08/17/18 15:00> Objective - Vital Signs/Intake and Output Vital Signs (last 24 hours): Temp Pulse Resp BP Pulse Ox 98.1 F 75 20 124/78 98 08/17/18 08:23 08/17/18 08:23 08/17/18 08:23 08/17/18 08:23 08/17/18 08:23 Intake and Output: 08/17/18 08/17/18 06:59 18:59 Intake Total 180 Balance 180 - Medications Medications: Current Medications Ferrous Sulfate (Feosol) 324 mg PO TID [facility] Last Admin: 08/17/18 13:28 Dose: 324 mg Heparin Sodium (Porcine) (Heparin) 5,000 units SC Q12 [facility]TA PRN Reason: Protocol Last Admin: 08/17/18 11:00 Dose: Not Given Lactated Ringer's (Lactated Ringer's) 1,000 mls @ 80 mls/hr IV .[id number] [facility] Last Admin: 08/16/18 17:40 Dose: 80 mls/hr Ketorolac Tromethamine (Toradol) 15 mg IVP Q8H PRN PRN Reason: Pain, moderate (4-7) Last Admin: 08/17/18 08:32 Dose: 15 mg Linezolid (Zyvox) 600 mg PO BID [facility] PRN Reason: Protocol Stop: 08/24/18 18:01 Pantoprazole Sodium (Protonix Ec Tab) 20 mg PO 0600,1600 [facility] Last Admin: 08/17/18 06:10 Dose: 20 mg - Labs Labs: 08/17/18 07:15 08/17/18 07:15 PT 11.6 SECONDS (9.4-12.5) 08/13/18 07:00 INR 1.01 08/13/18 07:00 APTT 29.8 Seconds (25.1-36.5) 08/13/18 07:00 Assessment and Plan - Assessment and Plan (Free Text) Plan: Infectious Diseases Attending Physician Addendum Patient seen and examined, discussed with medical library assistant. I have reviewed the pertinent clinical information for the patient, including history of present illness, medical, personal and social histories, lab results and imaging findings. I agree with the above findings, assessment and plan. In addition, we can switch patient to Zyvox for sepsis from MRSA right hand and wrist skin and skin structure infection. Reviewed MRI of right hand which does not show explicit abscess or fluid collection. Will recommend at least 7 more days of Zyvox and should follow up as outpatient with a primary care doctor to follow up her hand infection.
[2018-08-17] MEDS: Vancomycin 1gm in NS 250ml 1 GM/250 ML BAG IVPB SCH (10:50)
--- NOTE | 2018-08-17 16:09 | MRI ---
Date of service: 08/14/2018 PROCEDURE: MRI of the right wrist with contrast HISTORY: r/o abscess COMPARISON: Nonenhanced study dated 08/07/2018 TECHNIQUE: MRI of the right wrist was performed in multiple planes. Postcontrast imaging was performed. 15 cc of Omniscan were injected FINDINGS: There is a joint effusion in the radioulnar joint with dorsal subluxation of the distal ulna. This is unchanged. There is some enhancement surrounding the wrist especially on the radial side around the extensor tendons. Findings are consistent with cellulitis and possible tenosynovitis. It is difficult to exclude osteomyelitis. There is increased signal intensity throughout the carpal bones that is most likely artifactual. IMPRESSION: Joint effusion in the radioulnar joint. Cellulitis versus tenosynovitis on the radial side of the wrist involving the extensor tendons. No definite evidence of osteomyelitis. See comments
[2018-08-17] MEDS: Lactated Ringer's 1,000 ML IV SCH (16:12)
[2018-08-17 16:27] VITALS: BP 132/98; PULSE 86; O2SAT 100
--- NOTE | 2018-08-17 18:35 | CP.PCM.DIS ---
<Mann Camarena - Last Filed: 08/17/18 18:32> Provider - Provider Date of Admission: 08/13/18 02:22 Attending physician: Lynette Seaman MD Primary care physician: None Consults: [place]: Jorge ID: Albert Surgery: Zimmerman Time Spent in preparation of Discharge (in minutes): 35 Diagnosis - Discharge Diagnosis (1) Cellulitis of hand Status: Acute Priority: High (2) IVDU (intravenous drug user) Status: Chronic Priority: High (3) Diarrhea Status: Resolved Priority: Medium (4) History of hepatitis C Status: Chronic Priority: Medium Hospital Course - Lab Results Lab Results: Micro Results 08/16/18 11:20 Stool C. difficile Antigen & Toxin A,B (M - Final 08/13/18 02:28 Urine,Clean Catch Urine Culture - Final Beta Hemolytic Strep Group B Most Recent Lab Values WBC 8.1 10^3/ul (4.5-11.0) 08/17/18 07:15 RBC 3.87 10^6/uL (3.5-6.1) 08/17/18 07:15 Hgb 10.1 g/dL (12.0-16.0) L 08/17/18 07:15 Hct 31.9 % (36.0-48.0) L 08/17/18 07:15 MCV 82.4 fl (80.0-105.0) 08/17/18 07:15 MCH 26.1 pg (25.0-35.0) 08/17/18 07:15 MCHC 31.7 g/dl (31.0-37.0) 08/17/18 07:15 RDW 15.8 % (11.5-14.5) H 08/17/18 07:15 Plt Count 361 10^3/uL (120.0-450.0) 08/17/18 07:15 MPV 8.2 fl (7.0-11.0) 08/17/18 07:15 Gran % 65.3 % (50.0-68.0) 08/17/18 07:15 Lymph % (Auto) 26.1 % (22.0-35.0) 08/17/18 07:15 Sutton % (Auto) 5.3 % (1.0-6.0) 08/17/18 07:15 Eos % (Auto) 2.6 % (1.5-5.0) 08/17/18 07:15 Baso % (Auto) 0.7 % (0.0-3.0) 08/17/18 07:15 Gran # 5.25 (1.4-6.5) 08/17/18 07:15 Lymph # (Auto) 2.1 (1.2-3.4) 08/17/18 07:15 Sutton # (Auto) 0.4 (0.1-0.6) 08/17/18 07:15 Eos # (Auto) 0.2 (0.0-0.7) 08/17/18 07:15 Baso # (Auto) 0.06 K/mm3 (0.0-2.0) 08/17/18 07:15 Differential Comment Cancelled 08/13/18 07:00 ESR 60 mm/hr (0.0-20.0) H 08/13/18 08:58 Retic Count 1.32 % (0.5-1.5) 08/13/18 07:00 PT 11.6 SECONDS (9.4-12.5) 08/13/18 07:00 INR 1.01 08/13/18 07:00 APTT 29.8 Seconds (25.1-36.5) 08/13/18 07:00 Lupus Anticoagulant see note 08/13/18 07:00 LA PTT Screen 37 sec (<=40) 08/13/18 07:00 dRVVT Mixing Study 29 sec (<=45) 08/13/18 07:00 dRVVT Mix Interpret Not indicated 08/13/18 07:00 Sodium 142 mmol/L (132-148) 08/17/18 07:15 Potassium 4.4 mmol/L (3.6-5.0) 08/17/18 07:15 Chloride 106 mmol/L (98-107) 08/17/18 07:15 Carbon Dioxide 28 mmol/L (21-33) 08/17/18 07:15 Anion Gap 13 (10-20) 08/17/18 07:15 BUN 10 mg/dL (7-21) 08/17/18 07:15 Creatinine 0.7 mg/dl (0.7-1.2) 08/17/18 07:15 Est GFR ( Amer) > 60 08/17/18 07:15 Est GFR (Non-Af Amer) > 60 08/17/18 07:15 Random Glucose 102 mg/dL (70-110) 08/17/18 07:15 Calcium 9.1 mg/dL (8.4-10.5) 08/17/18 07:15 Iron 10 ug/dL (45-180) L 08/13/18 07:00 TIBC 266 ug/dL (265-497) 08/13/18 07:00 % Saturation 4 % (20-55) L 08/13/18 07:00 Ferritin 73.2 ng/mL 08/13/18 07:00 Total Bilirubin 0.2 mg/dL (0.2-1.3) 08/17/18 07:15 AST 26 U/L (14-36) 08/17/18 07:15 ALT 16 U/L (7-56) 08/17/18 07:15 Alkaline Phosphatase 73 U/L (38-126) 08/17/18 07:15 C-Reactive Protein 80.40 mg/L (0.0-9.9) H 08/13/18 07:00 Total Protein 6.7 g/dL (5.8-8.3) 08/17/18 07:15 Albumin 3.4 g/dL (3.0-4.8) 08/17/18 07:15 Globulin 3.3 gm/dL 08/17/18 07:15 Albumin/Globulin Ratio 1.0 (1.1-1.8) L 08/17/18 07:15 Thyroxine (T4) 9.4 ug/dL (5.5-11.0) 08/13/18 07:00 TSH 3rd Generation 0.59 mIU/mL (0.46-4.68) 08/13/18 07:00 Urine Color Yellow (YELLOW) 08/13/18 02:28 Urine Appearance Sl cloudy (CLEAR) 08/13/18 02:28 Urine pH 6.0 (4.7-8.0) 08/13/18 02:28 Ur Specific [place] >= 1.030 (1.005-1.035) 08/13/18 02:28 Urine Protein 30 mg/dL (<30 mg/dL) H 08/13/18 02:28 Urine Glucose (UA) Negative mg/dL (NEGATIVE) 08/13/18 02:28 Urine Ketones Negative mg/dL (NEGATIVE) 08/13/18 02:28 Urine Blood Small (NEGATIVE) H 08/13/18 02:28 Urine Nitrate Negative (NEGATIVE) 08/13/18 02:28 Urine Bilirubin Negative (NEGATIVE) 08/13/18 02:28 Urine Urobilinogen 0.2 E.U./dL (<1 E.U./dL) 08/13/18 02:28 Ur Leukocyte Esterase Moderate Cheikh/uL (NEGATIVE) H 08/13/18 02:28 Urine RBC 0 - 2 /hpf (0-2) 08/13/18 02:28 Urine WBC Tntc /hpf (0-6) 08/13/18 02:28 Ur Epithelial Cells Many /hpf (0-5) 08/13/18 02:28 Urine Bacteria Mod (NEG) 08/13/18 02:28 Urine Opiates Screen Positive (NEGATIVE) H 08/13/18 18:48 Urine Methadone Screen Negative (NEGATIVE) 08/13/18 18:48 Ur Barbiturates Screen Negative (NEGATIVE) 08/13/18 18:48 Ur Phencyclidine Scrn Negative (NEGATIVE) 08/13/18 18:48 Ur Amphetamines Screen Negative (NEGATIVE) 08/13/18 18:48 U Benzodiazepines Scrn Negative (NEGATIVE) 08/13/18 18:48 U Oth Cocaine Metabols Positive (NEGATIVE) H 08/13/18 18:48 U Cannabinoids Screen Negative (NEGATIVE) 08/13/18 18:48 OMA Screen Negative (NEGATIVE) 08/13/18 07:00 OMA Titer TNP 08/13/18 07:00 OMA Pattern TNP 08/13/18 07:00 SS-A Antibody <1.0 neg AI (<1.0 NEGATIVE) 08/13/18 07:00 SS-B Antibody <1.0 neg AI (<1.0 NEGATIVE) 08/13/18 07:00 Sm (Lamas) Antibody <1.0 neg AI (<1.0 NEGATIVE) 08/13/18 07:00 SM/PROCESS DEVELOPMENT CHEMIST Antibody <1.0 neg AI (<1.0 NEGATIVE) 08/13/18 07:00 Scl-70 Antibody <1.0 neg AI (<1.0 NEGATIVE) 08/13/18 07:00 Ribosomal P Prot Ab <1.0 neg AI (<1.0 NEGATIVE) 08/13/18 07:00 Anti-Mitochondrial Titr TNP 08/13/18 07:00 Anti-Mitochondrial Ab Negative (NEGATIVE) 08/13/18 07:00 Actin IgG Antibody 21 U H 08/13/18 07:00 Thyroperoxidase Ab <1 IU/mL (<9) 08/13/18 07:00 Anti-Parietal Cell Ab <20.0 U 08/13/18 07:00 Anti-Cardiolipin IgG Ab <14 GPL (<=14) 08/13/18 07:00 Anti-Cardiolipin IgA Ab <11 APL (<=11) 08/13/18 07:00 Anti-Cardiolipin IgM Ab <12 MPL (<=12) 08/13/18 07:00 - Hospital Course Hospital Course: This is a 42 yo F with PMH of SLE, RA, hepatitis C, cellulitis, depression and IVDA who [place] [facility] [place] of right hand and wrist swelling and pain 2/2 IVDA. Patient had been discharged on 08/08 for similar symptoms and was given prescription for oral zyvox and augmentin but was reportedly unable to obtain due to lack of insurance. She was again seen by ID, in addition to Ortho and Surgery. As per Surgery, defers to Ortho, who reports no intervention indicated at this time. As per ID, patient can be discharged on Zyvox 600mg PO BID for another 7 days, and should have repeat CBC in 1 week to reassess WBCs. Prescription for Zyvox transmitted to in-house outpatient pharmacy for availability at time of discharge. Instructed patient to take as prescribed, to avoid any further illicit or IV drug abuse, and to follow up at the [facility] on 08/24/18 at 4:30pm. She was given a script for repeat CBC and instructed to obtain prior to clinic appointment. Patient expressed agreement and understanding, no additional questions from patient, so she was discharged to home. Patient seen, reviewed, and discussed with attending, Dr Seaman. Discharge Exam - Head Exam Head Exam: ATRAUMATIC, NORMAL INSPECTION, NORMOCEPHALIC - Eye Exam Eye Exam: EOMI, Normal appearance. absent: Conjunctival injection, Scleral icterus Pupil Exam: absent: Fixed, Irregular - ENT Exam ENT Exam: Mucous Membranes Moist - Neck Exam Neck exam: Full Rom, Normal Inspection - Respiratory Exam Respiratory Exam: Clear to PA & Lateral, NORMAL BREATHING PATTERN, UNREMARKABLE. absent: Accessory Muscle Use, Chest Wall Tenderness, Decreased Breath Sounds, Rales, Rhonchi, Wheezes - Cardiovascular Exam Cardiovascular Exam: REGULAR RHYTHM, RRR, +S1, +S2. absent: Bradycardia, Tachycardia, Irregular Rhythm, JVD, +S4 - GI/Abdominal Exam GI & Abdominal Exam: Normal Bowel Sounds, Soft, Unremarkable. absent: Diminished Bowel Sounds, Distended, Firm, Hyperactive Bowel Sounds, Hypoactive Bowel Sounds, Rigid, Tenderness - Extremities Exam Extremities exam: normal capillary refill, pedal pulses present Additional comments: healing R hand cellulitis, no acute or overt erythema in non-bandaged areas, no appreciable swelling, no actively oozing/bleeding/weeping areas appreciated - Neurological Exam Additional comments: awake and alert, ambulating without issue, moving all extremities spontaneously - Psychiatric Exam Psychiatric exam: Normal Affect, Normal Mood - Skin Skin Exam: Dry, Intact, Warm Discharge Plan - Discharge Medications Prescriptions: Linezolid [Zyvox] 600 mg PO BID #14 tab - Follow Up Plan Condition: FAIR Disposition: HOME/ ROUTINE Instructions: Quitting Smoking for Older Adults, Methicillin-Resistant Staphylococcus aureus (MRSA), Drug Abuse and Drug Addiction (DC), Cellulitis ( Skin Infection), Adult (DC), Multidrug Resistant Organisms (DC), Cellulitis (DC) Additional Instructions: You were seen for your right hand cellulitis. The Infectious Disease doctor recommends 7 more days of Zyvox, to be taken twice per day. The prescription was electronically transmitted to our in-house outpatient pharmacy, so the medication can be provided to you on discharge. You had an MRI of your arm. As per the Orthopedic doctor, there is no intervention required. Please avoid any further drug abuse. Please follow up in the [facility]. You have an appointment for August 24 2018 at 430pm. Please resolve your [place] [facility] before the appointment. Please obtain a repeat CBC in 1 week, before your clinic appointment. A script has been provided. Please present to the nearest ED if you experience worsening or newly concerning symptoms. Referrals: [facility] [place]/24/18 4:30 pm (Aug 24 4:30pm) <Lynette Seaman - Last Filed: 08/18/18 15:50> Provider - Provider Date of Admission: 08/13/18 02:22 Attending physician: Lynette Seaman MD Hospital Course - Lab Results Lab Results: Micro Results 08/16/18 11:20 Stool C. difficile Antigen & Toxin A,B (M - Final 08/13/18 02:28 Urine,Clean Catch Urine Culture - Final Beta Hemolytic Strep Group B Most Recent Lab Values WBC 8.1 10^3/ul (4.5-11.0) 08/17/18 07:15 RBC 3.87 10^6/uL (3.5-6.1) 08/17/18 07:15 Hgb 10.1 g/dL (12.0-16.0) L 08/17/18 07:15 Hct 31.9 % (36.0-48.0) L 08/17/18 07:15 MCV 82.4 fl (80.0-105.0) 08/17/18 07:15 MCH 26.1 pg (25.0-35.0) 08/17/18 07:15 MCHC 31.7 g/dl (31.0-37.0) 08/17/18 07:15 RDW 15.8 % (11.5-14.5) H 08/17/18 07:15 Plt Count 361 10^3/uL (120.0-450.0) 08/17/18 07:15 MPV 8.2 fl (7.0-11.0) 08/17/18 07:15 Gran % 65.3 % (50.0-68.0) 08/17/18 07:15 Lymph % (Auto) 26.1 % (22.0-35.0) 08/17/18 07:15 [place] % (Auto) 5.3 % (1.0-6.0) 08/17/18 07:15 Eos % (Auto) 2.6 % (1.5-5.0) 08/17/18 07:15 Baso % (Auto) 0.7 % (0.0-3.0) 08/17/18 07:15 Gran # 5.25 (1.4-6.5) 08/17/18 07:15 Lymph # (Auto) 2.1 (1.2-3.4) 08/17/18 07:15 Sutton # (Auto) 0.4 (0.1-0.6) 08/17/18 07:15 Eos # (Auto) 0.2 (0.0-0.7) 08/17/18 07:15 Baso # (Auto) 0.06 K/mm3 (0.0-2.0) 08/17/18 07:15 Differential Comment Cancelled 08/13/18 07:00 ESR 60 mm/hr (0.0-20.0) H 08/13/18 08:58 Retic Count 1.32 % (0.5-1.5) 08/13/18 07:00 PT 11.6 SECONDS (9.4-12.5) 08/13/18 07:00 INR 1.01 08/13/18 07:00 APTT 29.8 Seconds (25.1-36.5) 08/13/18 07:00 Lupus Anticoagulant see note 08/13/18 07:00 LA PTT Screen 37 sec (<=40) 08/13/18 07:00 dRVVT Mixing Study 29 sec (<=45) 08/13/18 07:00 dRVVT Mix Interpret Not indicated 08/13/18 07:00 Sodium 142 mmol/L (132-148) 08/17/18 07:15 Potassium 4.4 mmol/L (3.6-5.0) 08/17/18 07:15 Chloride 106 mmol/L (98-107) 08/17/18 07:15 Carbon Dioxide 28 mmol/L (21-33) 08/17/18 07:15 Anion Gap 13 (10-20) 08/17/18 07:15 BUN 10 mg/dL (7-21) 08/17/18 07:15 Creatinine 0.7 mg/dl (0.7-1.2) 08/17/18 07:15 Est GFR ( Amer) > 60 08/17/18 07:15 Est GFR (Non-Af Amer) > 60 08/17/18 07:15 Random Glucose 102 mg/dL (70-110) 08/17/18 07:15 Calcium 9.1 mg/dL (8.4-10.5) 08/17/18 07:15 Iron 10 ug/dL (45-180) L 08/13/18 07:00 TIBC 266 ug/dL (265-497) 08/13/18 07:00 % Saturation 4 % (20-55) L 08/13/18 07:00 Ferritin 73.2 ng/mL 08/13/18 07:00 Total Bilirubin 0.2 mg/dL (0.2-1.3) 08/17/18 07:15 AST 26 U/L (14-36) 08/17/18 07:15 ALT 16 U/L (7-56) 08/17/18 07:15 Alkaline Phosphatase 73 U/L (38-126) 08/17/18 07:15 C-Reactive Protein 80.40 mg/L (0.0-9.9) H 08/13/18 07:00 Total Protein 6.7 g/dL (5.8-8.3) 08/17/18 07:15 Albumin 3.4 g/dL (3.0-4.8) 08/17/18 07:15 Globulin 3.3 gm/dL 08/17/18 07:15 Albumin/Globulin Ratio 1.0 (1.1-1.8) L 08/17/18 07:15 Thyroxine (T4) 9.4 ug/dL (5.5-11.0) 08/13/18 07:00 TSH 3rd Generation 0.59 mIU/mL (0.46-4.68) 08/13/18 07:00 Urine Color Yellow (YELLOW) 08/13/18 02:28 Urine Appearance Sl cloudy (CLEAR) 08/13/18 02:28 Urine pH 6.0 (4.7-8.0) 08/13/18 02:28 Ur Specific [place] >= 1.030 (1.005-1.035) 08/13/18 02:28 Urine Protein 30 mg/dL (<30 mg/dL) H 08/13/18 02:28 Urine Glucose (UA) Negative mg/dL (NEGATIVE) 08/13/18 02:28 Urine Ketones Negative mg/dL (NEGATIVE) 08/13/18 02:28 Urine Blood Small (NEGATIVE) H 08/13/18 02:28 Urine Nitrate Negative (NEGATIVE) 08/13/18 02:28 Urine Bilirubin Negative (NEGATIVE) 08/13/18 02:28 Urine Urobilinogen 0.2 E.U./dL (<1 E.U./dL) 08/13/18 02:28 Ur Leukocyte Esterase Moderate Cheikh/uL (NEGATIVE) H 08/13/18 02:28 Urine RBC 0 - 2 /hpf (0-2) 08/13/18 02:28 Urine WBC Tntc /hpf (0-6) 08/13/18 02:28 Ur Epithelial Cells Many /hpf (0-5) 08/13/18 02:28 Urine Bacteria Mod (NEG) 08/13/18 02:28 Urine Opiates Screen Positive (NEGATIVE) H 08/13/18 18:48 Urine Methadone Screen Negative (NEGATIVE) 08/13/18 18:48 Ur Barbiturates Screen Negative (NEGATIVE) 08/13/18 18:48 Ur Phencyclidine Scrn Negative (NEGATIVE) 08/13/18 18:48 Ur Amphetamines Screen Negative (NEGATIVE) 08/13/18 18:48 U Benzodiazepines Scrn Negative (NEGATIVE) 08/13/18 18:48 U Oth Cocaine Metabols Positive (NEGATIVE) H 08/13/18 18:48 U Cannabinoids Screen Negative (NEGATIVE) 08/13/18 18:48 Rheumatoid Factor <14 IU/mL (<14) 08/13/18 07:00 OMA Screen Negative (NEGATIVE) 08/13/18 07:00 OMA Titer TNP 08/13/18 07:00 OMA Pattern TNP 08/13/18 07:00 SS-A Antibody <1.0 neg AI (<1.0 NEGATIVE) 08/13/18 07:00 SS-B Antibody <1.0 neg AI (<1.0 NEGATIVE) 08/13/18 07:00 Sm (Lamas) Antibody <1.0 neg AI (<1.0 NEGATIVE) 08/13/18 07:00 SM/PROCESS DEVELOPMENT CHEMIST Antibody <1.0 neg AI (<1.0 NEGATIVE) 08/13/18 07:00 Scl-70 Antibody <1.0 neg AI (<1.0 NEGATIVE) 08/13/18 07:00 Anti-ds DNA Titer (Crith) TNP 08/13/18 07:00 Anti-ds DNA (Crithidia) Negative (NEGATIVE) 08/13/18 07:00 Ribosomal P Prot Ab <1.0 neg AI (<1.0 NEGATIVE) 08/13/18 07:00 Anti-Mitochondrial Titr TNP 08/13/18 07:00 Anti-Mitochondrial Ab Negative (NEGATIVE) 08/13/18 07:00 Actin IgG Antibody 21 U H 08/13/18 07:00 Striated Muscle Ab TNP 08/13/18 07:00 Thyroperoxidase Ab <1 IU/mL (<9) 08/13/18 07:00 Anti-Parietal Cell Ab <20.0 U 08/13/18 07:00 Anti-Cardiolipin IgG Ab <14 GPL (<=14) 08/13/18 07:00 Anti-Cardiolipin IgA Ab <11 APL (<=11) 08/13/18 07:00 Anti-Cardiolipin IgM Ab <12 MPL (<=12) 08/13/18 07:00 Attending/Attestation - Attestation I have personally seen and examined this patient.: Yes I have fully participated in the care of the patient.: Yes I have reviewed all pertinent clinical information, including history, physical exam and plan: Yes Notes (Text): 08/18/18 15:46 Medical record note made by the resident after discussion with my direction and input after the patient was personally seen and examined by me. I have reviewed the chart and agree that the record accurately reflects by personal performance of the history, physical exam, data review, and medical decision-making, in the course for the patient. I have also personally directed the plan of care. 42 year old female with past medical history of hepatitic C, IVDA and cellulitis who was recently discharged presented with recurrent cellulitis after failing to get her outpatient antibiotics.MRI showed no definite evidence of discrete drainable fluid collection, moderate inflammatory changes associated with joint effusions and heterogeneous increased signal with patchy enhancement in the wrist more prominent at the carpal bones. Soft tissue ultrasound was unremarkable.There is no evidence of osteomylitis on MRI.Patient was evaluated by Ortho, no need for any intervention.Wound cultures grew Mrsa.She will be discharged home on oral Linezolid as recommended by ID. Patient was counselled on risks of continued substance abuse. Anemia is stable, likely multifactorial secondary to anemia of chronic disease , infection, hep C. Patient is on iron supplementation. Recommended outpatient follow up for hepatitis C. Management plan was discussed in detail with patient. Education was provided. 08/18/18 15:50
== END 2018-08-17 17:34 | disposition home or self-care (01) | DRG 603 ==
LOC: ED 01:14 → ERH 02:22 → 5RSO 04:03
PROVIDERS: ADMIT Internal Medicine; ATTEND Internal Medicine
DX: L03.113 Cellulitis of right upper limb (principal); B19.20 Unspecified viral hepatitis C without hepatic coma; D63.8 Anemia in other chronic diseases classified elsewhere; F10.20 Alcohol dependence, uncomplicated; F17.210 Nicotine dependence, cigarettes, uncomplicated; F19.10 Other psychoactive substance abuse, uncomplicated; F31.9 Bipolar disorder, unspecified; F41.9 Anxiety disorder, unspecified; J45.909 Unspecified asthma, uncomplicated; M06.9 Rheumatoid arthritis, unspecified; M32.9 Systemic lupus erythematosus, unspecified; D50.9 Iron deficiency anemia, unspecified; Z80.0 Family history of malignant neoplasm of digestive organs; Z87.01 Personal history of pneumonia (recurrent); Z87.442 Personal history of urinary calculi; R19.7 Diarrhea, unspecified; B95.62 Methicillin resistant Staphylococcus aureus infection as the cause of diseases classified elsewhere